=== PATIENT | female | born 1955 | race Caucasian/White ===

== ENCOUNTER 2016-10-30 18:32 | Inpatient (IN) ==
[2016-10-30] MEDS ORDERED: DUONEB (A & A) INH ONE ×2 (18:43)
[2016-10-30] MEDS ORDERED: SOLU-MEDROL ONE (19:10)
--- NOTE | 2016-10-30 19:12 | PROVIDER DOCUMENTATION ---
HPI-Respiratory General - General Chief Complaint: Shortness of Breath Stated Complaint: SOB Time Seen by Provider: 10/30/16 18:50 Source: patient Allergies/Adverse Reactions: Patient Allergies Allergy/AdvReac Type Severity Reaction Status Date / Time No Known Allergies Allergy Verified 12/17/15 12:19 Home Medications: Home Medication List Medication Instructions Recorded Confirmed Last Taken Type Clonazepam [Klonopin] 0.5 mg PO BID 09/05/12 12/22/15 12/21/15 21:00 History Trazodone E.r. [Oleptro ER] 150 mg PO QHS 09/05/12 12/22/15 12/21/15 21:00 History ATORVAstatin [Lipitor] 10 mg PO QHS #0 tablet 12/14/12 12/22/15 12/21/15 21:00 Rx Enalapril Maleate [Vasotec] 20 mg PO BID #60 12/14/12 12/22/15 12/22/15 04:30 Rx Hydralazine [Apresoline] 50 mg PO BID #0 tablet 12/14/12 12/22/15 12/22/15 04: 30 Rx Amlodipine [Norvasc] 10 mg PO DAILY 05/05/15 12/17/15 11/27/15 History Citalopram [Celexa] 40 mg PO DAILY 05/05/15 12/17/15 11/27/15 History Furosemide [Lasix] 20 mg PO PRN PRN 12/17/15 12/22/15 12/08/15 History Acetaminophen [Tylenol] 1,000 mg PO Q6H #0 tablet 12/25/15 Unknown Rx Celecoxib [Celebrex] 200 mg PO BID #60 capsule 12/25/15 Unknown Rx Docusate Sodium [Colace] 100 mg PO BID #0 capsule 12/25/15 Unknown Rx Famotidine [Pepcid] 20 mg PO QAM #0 tablet 12/25/15 Unknown Rx Oxycodone I.r. [Oxy Ir] 5 - 10 mg PO Q3H PRN PRN #60 12/25/15 Unknown Rx capsule Pregabalin [Lyrica] 75 mg PO BID #60 capsule 12/25/15 Unknown Rx Rivaroxaban [Xarelto] 10 mg PO Q24H #30 tablet 12/25/15 Unknown Rx Tramadol [Ultram] 100 mg PO Q6HR #60 tablet 12/25/15 Unknown Rx - History of Present Illness-Resp Nature of Presenting Problem: 61 YOWF WITH HX OF PNEUMONIA, PRESENTS TO ED WITH C/O PT STATES HAD A SUDDEN ONSET THIS EVENING OF SOB. PT STATES SHE HAD PNEUMONIA 1 MONTH AGO. PT DOES HAVE AUDIBLE WHEEZING. Quality of Pain: reports: aching Severity in ED: reports: moderate Onset/Duration: reports: 1-3 hours ago Timing: reports: still present Cough Quality/Degree: reports: moderate, dry cough Episode Frequency: occasional episodes Modifying Factors: improves with: nothing Associated Symptoms: reports: cough, short of breath, wheezing Similar Symptoms Previously?: No Recently seen or treated by another doctor?: No Review of Systems - Adult - REVIEW OF SYSTEMS - ADULT Constitutional: denies: chills, fever Eyes: reports: no symptoms reported Ears, Nose, Mouth & Throat: reports: no symptoms reported Cardiovascular: denies: chest pain, palpitations, syncope Respiratory: reports: cough, shortness of breath, wheezing Gastrointestinal: denies: abdominal pain, diarrhea, nausea, vomiting Genitourinary: reports: no symptoms reported Musculoskeletal: denies: back pain, neck pain Integumentary: reports: no symptoms reported Neurological: denies: dizziness/vertigo, syncope Psychiatric: reports: no symptoms reported Endocrine: reports: no symptoms reported Hematologic/Lymphatic: reports: no symptoms reported Allergic/Immunologic: reports: no symptoms reported All Other Systems: Reviewed and Negative Past History - Adult - PAST MEDICAL HISTORY-ADULT Review of Records: reports: Nursing Assessment Review, Medications Reviewed Cardiovascular: reports: HTN, other (blockage) Musculoskeletal: reports: arthritis - PRIOR SURGERIES/PROCEDURES Surgical/Procedure History: reports: hysterectomy, - IMMUNIZATION STATUS Childhood Immunizations: See Nurse Assessment Flu Vaccine: See Nurse Assessment - FAMILY HISTORY Family History: reviewed, not pertinent - SOCIAL HISTORY Living Situation: friend Physical Exam-General - CONSTITUTIONAL General Appearance: alert, moderate distress - EYES Eyes: PERRL/EOMI, pink conjunctivae - HEAD, EARS, NOSE, MOUTH & THROAT HENMT: normocephalic/atraumatic, moist mucous membranes - NECK Neck: non-tender, full range of motion, supple - RESPIRATORY Respiratory: chest non-tender, wheezing - CARDIOVASCULAR Cardiovascular: normal peripheral pulses, regular rate, rhythm - GASTROINTESTINAL (ABDOMEN) Abdominal Exam: normal bowel sounds, non tender, soft - LYMPHATIC Lymphatic: no adenopathy - MUSCULOSKELETAL Back Exam: normal inspection, no CVA tenderness, no vertebral tenderness Extremity: normal range of motion, non-tender - SKIN Integumentary: normal color, normal turgor, warm/dry - NEUROLOGIC Neurologic: grossly normal - PSYCHIATRIC Psych/Mental Status: oriented x 3 Progress - PLAN OF CARE/RESULTS Progress/Plan/Lab Results: Laboratory Tests 10/30/16 10/30/16 10/30/16 19:05 19:05 19:05 WBC RBC Hgb Hct MCV MCH MCHC RDW Std Deviation Plt Count MPV Immature Gran % (Auto) Neut % (Auto) Lymph % (Auto) [place] % (Auto) Eos % (Auto) Baso % (Auto) Immature Gran # (Auto) Neut # (Auto) Lymph # (Auto) [place] # (Auto) Eos # (Auto) Baso # (Auto) PT INR APTT (Factor Assay) Sodium 134 L Potassium 3.7 Chloride 102 Carbon Dioxide 18 L Anion Gap 14 BUN 14 Creatinine 0.8 Estimated GFR/1.73 m2 > 60 BUN/Creatinine Ratio 18 Glucose 80 Calculated Osmolality 268 Calcium 9.7 Magnesium 1.7 Total Bilirubin 0.30 AST 19 ALT 12 Alkaline Phosphatase 81 Creatine Kinase 75 Troponin T < 0.010 Qgs-Y-Luaxistikuz Pept 67 Total Protein 7.0 Albumin 4.3 Globulin 3.0 Albumin/Globulin Ratio 2.0 10/30/16 10/30/16 19:05 19:05 WBC 6.86 RBC 3.88 L Hgb 11.8 L Hct 34.9 L MCV 89.9 MCH 30.4 MCHC 33.8 RDW Std Deviation 13.0 Plt Count 290 MPV 9.3 Immature Gran % (Auto) 0.1 Neut % (Auto) 49.7 Lymph % (Auto) 38.3 [place] % (Auto) 7.4 Eos % (Auto) 3.6 Baso % (Auto) 0.9 H Immature Gran # (Auto) 0.01 Neut # (Auto) 3.40 Lymph # (Auto) 2.63 [place] # (Auto) 0.51 Eos # (Auto) 0.25 Baso # (Auto) 0.06 PT 13.4 INR 0.99 APTT (Factor Assay) 27.5 Sodium Potassium Chloride Carbon Dioxide Anion Gap BUN Creatinine Estimated GFR/1.73 m2 BUN/Creatinine Ratio Glucose Calculated Osmolality Calcium Magnesium Total Bilirubin AST ALT Alkaline Phosphatase Creatine Kinase Troponin T Yjc-W-Xpmlncupqnd Pept Total Protein Albumin Globulin Albumin/Globulin Ratio Orders Category Date Time Status Cardiac Monitoring DIRECTED Care 10/30/16 20:02 Active Oxygen Therapy- ED Nursing DIRECTED Care 10/30/16 20:02 Active Saline Loc NOW Care 10/30/16 20:02 Active CHEST-2 VIEWS [RAD] Stat Exams 10/30/16 18:42 Draft BLOOD CULTURE [BLDCUL] Stat Lab 10/30/16 18:42 Ordered CBC WITH ELECTRONIC DIFF [HEME] Stat Lab 10/30/16 19:05 Completed CK PROFILE [SP CHEM] Stat Lab 10/30/16 19:05 Completed COMPREHENSIVE METABOLIC PANEL [CHEM] Stat Lab 10/30/16 19:05 Completed MAGNESIUM [CHEM] Stat Lab 10/30/16 19:05 Completed PRO B-NATRIURETIC PEPTIDE Stat Lab 10/30/16 19:05 Completed [address]IME WITH INR PL [COAG] Stat Lab 10/30/16 19:[address] [COAG] Stat Lab 10/30/16 19:05 Completed TROPONIN T Stat Lab 10/30/16 19:05 Completed Albuterol 2.5MG/Ipratrop 0.5MG [Duoneb (A & A)] Med 10/30/16 18:43 Discontinued 3 ml INH NOW ONE Albuterol 2.5MG/Ipratrop 0.5MG [Duoneb (A & A)] Med 10/30/16 18:43 Discontinued 3 ml INH NOW ONE Methylprednisolone Sod Succ [Solu-Medrol] Med 10/30/16 19:10 Discontinued 125 mg .ROUTE .STK-MED ONE Methylprednisolone Sod Succ [Solu-Medrol] Med 10/30/16 19:15 Discontinued 125 mg IV NOW ONE Aerosol Treatments Stat Oth 10/30/16 18:43 Completed Pulse Oximetry Stat Oth 10/30/16 18:42 Active EKG [EKG] Stat Ther 10/30/16 19:00 Ordered Vital Signs - 24 hr 10/30/16 10/30/16 18:38 18:50 Temperature 98.7 F Pulse Rate 78 88 Respiratory 24 22 Rate Blood Pressure 151/83 O2 Sat by Pulse 98 98 Oximetry - EKG 1 Time of EKG reading by physician:: 18:59 EKG Read and Signed by:: Pepe Miller Rate: 79 Rhythm: SINUS RHYTHM W/ OCCASIONAL PVC'S [place]: left QRS: LBB [place] Interval: normal ST Wave: normal - XRAY 1 XRAY: Bilateral XRAY Study: Chest XRAY Interpretation: NO PNEUMONIA - CONSULTS/PCP/HOSPITALIST Notification #1 *Consult/PCP/Hospitalist*: DR FULLER Time Discussed: 20:59 Reason/Comments: DR MILLER SPOKE WITH DR FULLER. DR FULLER WILL ADMIT Consult Disposition: Admit Departure - Departure Time of Disposition Order: 20:58 DIAGNOSIS: COPD exacerbation Disposition: ADMITTED INPATIENT 09 Certified Medical Emergency: Emergent Condition: Stable Additional Instructions: ED Follow Up Instructions: You have been treated by a care provider in the Emergency Department. These instructions are being provided to you so you can have an understanding of how to care for yourself upon discharge. Upon discharge from the Emergency Department, you are responsible for making arrangements for follow-up care by a physician of your choice. Take all prescribed medications as directed. Return to the Emergency Department immediately for any new or worsening symptoms. You may call the Physician Referral phone number at [phone] to obtain a list of Physicians who are taking new patients. Attestation - Scribe Verification/Attestation Scribe:: Donato Shaw Acting as Scribe for:: Pepe Miller Scribe documention review:: This chart was documented by a scribe and accurately reflects the service the provider performed and the decisions made by the provider.
[2016-10-30] MEDS ORDERED: SOLU-MEDROL IV ONE (19:15)
--- NOTE | 2016-10-30 19:50 | Diag Imaging Result Document ---
PROCEDURE NAME: CHEST-2 VIEWS - 10/30/2016 FRONTAL AND LATERAL CHEST, 2 VIEWS: COMPARISON: Compared to 12/25/2015. The lungs are well expanded. The heart is not enlarged. The vessels are not distended. There are no infiltrates. No pleural effusions. IMPRESSION: No pneumonia.
[2016-10-30 20:22] LABS: MANUAL DIFF NEEDED? NO
[2016-10-30 20:23] LABS: BASO% 0.9 % (0.0-0.8); EOS# 0.25 X1000 (0.0-0.7); EOS% 3.6 % (0.0-10.0); HEMATOCRIT 34.9 % (37.0-47.0); HEMOGLOBIN 11.8 g/dL (12.0-16.0); IMM GRAN# 0.01 X1000 (0.0-0.04); IMM GRAN% 0.1 % (0.0-0.5); LYMPH# 2.63 X1000 (1.2-3.4); LYMPH% 38.3 % (20.5-51.1); MCH 30.4 PG (27-31); MCHC 33.8 g/dL (33-37); MCV 89.9 FL (81-99); MONO# 0.51 X1000 (0.11-0.59); MONO% 7.4 % (1.7-9.3); MPV 9.3 FL (7.4-10.4); NEUT% 49.7 % (42.2-75.2); PLT 290 X1000 (130-400); RBC 3.88 XMIL (4.2-5.4)
[2016-10-30 20:32] LABS: INR 0.99 (0.86-1.15); PROTIME 13.4 Seconds (12.1-15.5)
[2016-10-30 20:33] LABS: PTT PL 27.5 Seconds (22.6-43.9)
[2016-10-30 20:37] LABS: AGAP 14; ALBUMIN 4.3 g/dL (3.5-5.0); ALKALINE PHOSPHATASE 81 U/L (32-104); BUN 14 mg/dL (8-22); CALCIUM 9.7 mg/dL (8.8-10.2); CHLORIDE 102 mmol/L (98-107); CK PROFILE 75 U/L (24-173); COSMO 268; GOT 19 U/L (10-30); GPT 12 U/L (10-36); MAGNESIUM 1.7 mg/dL (1.5-2.7); POTASSIUM 3.7 mmol/L (3.5-5.1); SODIUM 134 mmol/L (136-145); TCO2 18 mmol/L (25-35)
[2016-10-30] MEDS ORDERED: MORPHINE IV PRN (21:01)
[2016-10-30] MEDS ORDERED: ZOFRAN IV PRN (21:01)
[2016-10-30] MEDS ORDERED: COLACE PO PRN (22:46)
[2016-10-30] MEDS: DUONEB (A & A) INH PRN (23:23)
[2016-10-30] MEDS: CELEXA PO SCH (23:27)
[2016-10-30] MEDS: FISH OIL CONCENTRATE PO SCH (23:27)
[2016-10-30] MEDS: LIPITOR PO SCH (23:27)
[2016-10-30] MEDS: DESYREL PO SCH (23:27)
[2016-10-30] MEDS: KLONOPIN PO SCH (23:27)
[2016-10-30] MEDS: LODINE PO SCH (23:28)
[2016-10-30] MEDS: APRESOLINE PO SCH (23:28)
[2016-10-30] MEDS: VASOTEC PO SCH (23:28)
[2016-10-30] MEDS: ABILIFY PO SCH (23:28)
[2016-10-30] MEDS: NORVASC PO SCH (23:28)
[2016-10-31] MEDS: MORPHINE IV PRN ×5 (00:43→23:22)
[2016-10-31] MEDS: SOLU-MEDROL IV SCH ×4 (01:10→23:22)
--- NOTE | 2016-10-31 06:07 | EKG Report ---
Test Performed on : 10/31/2016 01:43:46 AM Test Reason : CP Blood Pressure : / mmHG Vent. Rate : 116 BPM Atrial Rate : 116 BPM P-R Int : 148 ms QRS Dur : 156 ms QT Int : 420 ms P-R-T Axes : 042 -03 164 degrees QTc Int : 583 ms Sinus tachycardia. Possible Left atrial enlargement Left bundle branch block Abnormal ECG When compared with ECG of 30-OCT-2016 18:58, (Unconfirmed) premature ventricular complexes. are no longer present Unconfirmed Result
--- NOTE | 2016-10-31 06:08 | EKG Report ---
Test Performed on : 10/30/2016 6:58:08 PM Test Reason : cp Blood Pressure : / mmHG Vent. Rate : 079 BPM Atrial Rate : 079 BPM P-R Int : 142 ms QRS Dur : 154 ms QT Int : 458 ms P-R-T Axes : 033 -32 144 degrees QTc Int : 525 ms Sinus rhythm. with occasional premature ventricular complexes. Left axis deviation Left bundle branch block Abnormal ECG When compared with ECG of 22-DEC-2015 10:20, premature ventricular complexes. are now present Unconfirmed Result
[2016-10-31] MEDS: DUONEB (A & A) INH PRN (07:58)
[2016-10-31] MEDS: LODINE PO SCH ×2 (08:59→20:57)
[2016-10-31] MEDS: APRESOLINE PO SCH ×2 (09:02→20:58)
[2016-10-31] MEDS: ASPIRIN PO SCH (09:02)
[2016-10-31] MEDS: KLONOPIN PO SCH ×2 (09:02→20:58)
[2016-10-31] MEDS: VASOTEC PO SCH ×2 (09:02→20:58)
[2016-10-31] MEDS ORDERED: DUONEB (A & A) INH PRN (09:54)
[2016-10-31] MEDS: DUONEB (A & A) INH SCH ×4 (11:34→22:45)
[2016-10-31 13:01] LABS: CALCIUM 9.9 mg/dL (8.8-10.2); POTASSIUM 3.8 mmol/L (3.5-5.1)
--- NOTE | 2016-10-31 16:08 | HISTORY AND PHYSICAL ---
PRIMARY CARE PHYSICIAN: Dr. Lozada. CHIEF COMPLAINT: Shortness of breath. HISTORY OF PRESENT ILLNESS: This is a 61-year-old female with a history of COPD, pneumonia within the last month, hypertension and asthma. She presents to the emergency room complaining of shortness of breath that started about 6 or 8 hours prior to coming to the emergency room. She stated that she has felt bad over the last few days, just has not done much but through the day she started to have shortness of breath with exertion and through the day she has progressed to shortness of breath at rest with audible wheezing. Therefore she presented to the emergency room. Vital signs at that time she had respirations were 24-26 with room air saturations of 98%. Her chest x-ray was clear. She was given duo nebs as well as 125 of Solu- Medrol, supplemental oxygen, admitted for further evaluation and treatment. PAST MEDICAL HISTORY: COPD with asthma, hypertension, depression, major depressive disorder and anxiety. PAST SURGICAL HISTORY: Hip replacement. SOCIAL HISTORY: She denies alcohol, tobacco, or illicit drug use. ALLERGIES: No known drug allergies. HOME MEDICATIONS: Celexa 40 at bedtime, aspirin 81 mg daily, Abilify 5 at bedtime, Klonopin 1 mg at bedtime, Tylenol 1 g q.6 hours p.r.n., Colace 100 mg b.i.d., Klonopin 0.5 q.a.m., Ultram 100 mg q.6 hours, Oleptro ER 150 at bedtime, fish oil 1000 mg at bedtime, Lipitor 10 at bedtime, Norvasc 10 at bedtime, Apresoline 50 b.i.d., Vasotec 20 mg b.i.d. REVIEW OF SYSTEMS: A 14-point review of systems is discussed with patient with pertinent positives stated in HPI. She denied any chest pain, syncope, dizziness, any PND, orthopnea, productive cough, fever, chills, any night sweats, recent weight loss, weight gain, nausea, vomiting, diarrhea, constipation, black or bloody vomitus, black or bloody stools, hematuria, dysuria, frequency, urgency. PHYSICAL EXAMINATION: GENERAL: This is a 61-year-old female who is sitting up in the bed in mild distress as her oxygen is off. Once oxygen was applied within 2 or 3 minutes she had no increased work of breathing. HEENT: Head is normocephalic, atraumatic. Pupils equal, round, react to light. EOMs are intact. Sclerae anicteric. Mucous membranes are moist. NECK: Supple. Trachea midline. CARDIOVASCULAR: Regular rate and rhythm. S1 and S2 appreciated. PULMONARY: Breath sounds have scattered wheezes with prolonged expiration, rhonchi that partially clear to cough. Chest rises and falls symmetrically with respiration. Chest wall is nontender to palpation. GASTROINTESTINAL: Abdomen is soft, nontender, nondistended with bowel sounds in all 4 quadrants. BACK: No CVAT. No spine tenderness. MUSCULOSKELETAL: Good range of motion of joints. EXTREMITIES: No clubbing, cyanosis or edema. Pulses are palpable x4. Calves are nontender. NEUROLOGIC: She is alert and oriented x3 with cranial nerves 2-12 grossly intact. SKIN: Warm and dry with no rashes or lesions noted. LABS: WBC is 6.8 with hemoglobin 11.8, hematocrit 34.9 and platelets of 290,000. INR is 0.99. Sodium is 134, potassium 3.7, BUN 14, creatinine 0.8 with a glucose of 80. Troponin is less than 0.010. Chest x-ray revealed no pneumonia. The heart is not enlarged. Vessels are not distended. There are no infiltrates, no pleural effusions. ASSESSMENT AND PLAN: 1. Chronic obstructive pulmonary disease, acute on chronic exacerbation. 2. Hypertension. 3. Major depressive disorder. 4. Anxiety. 5. Deep vein thrombosis prophylaxis. 6. Gastrointestinal prophylaxis. She will be admitted to the hospital. Placed on telemetry. Will give supplemental oxygen, DuoNeb q.4 with q.2 hours p.r.n. with steroids to taper. We will identify and continue her home medications as appropriate. We will trend her electrolytes. We will start incentive spirometer. The patient out of bed in the chair. For DVT prophylaxis we will use Lovenox and for GI prophylaxis Protonix. Further treatments pending hospital course. Dictated by BAILEY Arambula for Garrett Baugh MD
[2016-10-31] MEDS: CELEXA PO SCH (20:57)
[2016-10-31] MEDS: FISH OIL CONCENTRATE PO SCH (20:57)
[2016-10-31] MEDS: LIPITOR PO SCH (20:57)
[2016-10-31] MEDS: ABILIFY PO SCH (20:58)
[2016-10-31] MEDS: DESYREL PO SCH (20:58)
[2016-10-31] MEDS: NORVASC PO SCH (20:58)
[2016-10-31] MEDS ORDERED: PATIENT'S OWN MED PO SCH (21:00)
[2016-11-01] MEDS: DUONEB (A & A) INH SCH ×6 (03:01→23:19)
[2016-11-01] MEDS: MORPHINE IV PRN ×4 (06:20→22:09)
[2016-11-01] MEDS: SOLU-MEDROL IV SCH ×3 (06:20→22:01)
[2016-11-01 06:25] LABS: HEMATOCRIT 34.1 % (37.0-47.0); MCH 30.3 PG (27-31); MCHC 32.3 g/dL (33-37); MCV 93.9 FL (81-99); MPV 9.6 FL (7.4-10.4); RBC 3.63 XMIL (4.2-5.4)
[2016-11-01 06:41] LABS: AGAP 13; BUN 16 mg/dL (8-22); CALCIUM 9.6 mg/dL (8.8-10.2); CHLORIDE 107 mmol/L (98-107); COSMO 287; POTASSIUM 4.4 mmol/L (3.5-5.1); SODIUM 140 mmol/L (136-145); TCO2 20 mmol/L (25-35)
[2016-11-01] MEDS: LOVENOX SUBQ SCH (08:21)
[2016-11-01] MEDS: APRESOLINE PO SCH ×2 (08:21→21:56)
[2016-11-01] MEDS: VASOTEC PO SCH ×2 (08:21→21:56)
[2016-11-01] MEDS: LODINE PO SCH ×2 (08:21→21:56)
[2016-11-01] MEDS: ASPIRIN PO SCH (08:21)
[2016-11-01] MEDS: KLONOPIN PO SCH ×2 (08:21→21:56)
[2016-11-01] MEDS: LEVAQUIN 750 MG/D5W 150 ML IV SCH (08:22)
[2016-11-01] MEDS ORDERED: NS 500 ML ONE (08:26)
--- NOTE | 2016-11-01 10:51 | Diag Imaging Result Document ---
PROCEDURE NAME: CHEST-PORTABLE - 11/01/2016 PORTABLE CHEST: Compared with 10/30/2016. FINDINGS: Heart size is normal. There is a small granuloma and calcified hilar lymph nodes from old granulomatous disease on the left. The lungs otherwise appear clear. There is no pleural effusion or pneumothorax identified. Inspiration is slightly shallow. IMPRESSION: Slightly shallow inspiration. No other evidence of acute disease.
[2016-11-01] MEDS: CELEXA PO SCH (21:56)
[2016-11-01] MEDS: FISH OIL CONCENTRATE PO SCH (21:56)
[2016-11-01] MEDS: NORVASC PO SCH (21:56)
[2016-11-01] MEDS: ABILIFY PO SCH (21:56)
[2016-11-01] MEDS: LIPITOR PO SCH (21:56)
[2016-11-01] MEDS: DESYREL PO SCH (21:56)
[2016-11-02] MEDS: DUONEB (A & A) INH SCH ×4 (03:08→21:07)
[2016-11-02 06:15] LABS: BASO% 0.1 % (0.0-0.8); HEMOGLOBIN 10.8 g/dL (12.0-16.0); IMM GRAN# 0.09 X1000 (0.0-0.04); IMM GRAN% 0.5 % (0.0-0.5); LYMPH# 0.49 X1000 (1.2-3.4); LYMPH% 2.8 % (20.5-51.1); MANUAL DIFF NEEDED? YES; MCH 30.6 PG (27-31); MCHC 32.7 g/dL (33-37); MCV 93.5 FL (81-99); MONO# 0.37 X1000 (0.11-0.59); MONO% 2.1 % (1.7-9.3); MPV 9.5 FL (7.4-10.4); NEUT% 94.5 % (42.2-75.2); PLT 288 X1000 (130-400); RBC 3.53 XMIL (4.2-5.4)
[2016-11-02 06:28] LABS: AGAP 11; ALBUMIN 3.7 g/dL (3.5-5.0); ALKALINE PHOSPHATASE 86 U/L (32-104); BUN 26 mg/dL (8-22); CALCIUM 9.1 mg/dL (8.8-10.2); CHLORIDE 106 mmol/L (98-107); COSMO 290; GOT 17 U/L (10-30); GPT 15 U/L (10-36); POTASSIUM 4.7 mmol/L (3.5-5.1); SODIUM 140 mmol/L (136-145); TCO2 23 mmol/L (25-35); TOTAL PROTEIN 6.1 g/dL (6.3-8.3)
[2016-11-02] MEDS: SOLU-MEDROL IV SCH (06:30)
[2016-11-02] MEDS: KLONOPIN PO SCH ×2 (08:05→22:24)
[2016-11-02] MEDS: LOVENOX SUBQ SCH (08:05)
[2016-11-02] MEDS: VASOTEC PO SCH ×2 (08:06→22:25)
[2016-11-02] MEDS: ASPIRIN PO SCH (08:06)
[2016-11-02] MEDS: LODINE PO SCH ×2 (08:06→22:25)
[2016-11-02] MEDS: APRESOLINE PO SCH ×2 (08:06→22:25)
[2016-11-02] MEDS: LEVAQUIN 750 MG/D5W 150 ML IV SCH (08:08)
[2016-11-02 08:19] LABS: LYMPHS 4 % (21-51); MONO 2 % (1-9)
[2016-11-02] MEDS: MORPHINE IV PRN (09:41)
[2016-11-02] MEDS: TYLENOL PO PRN (18:07)
[2016-11-02] MEDS: FISH OIL CONCENTRATE PO SCH (22:24)
[2016-11-02] MEDS: LIPITOR PO SCH (22:24)
[2016-11-02] MEDS: NORVASC PO SCH (22:24)
[2016-11-02] MEDS: ABILIFY PO SCH (22:24)
[2016-11-02] MEDS: CELEXA PO SCH (22:25)
[2016-11-02] MEDS: DESYREL PO SCH (22:25)
[2016-11-03] MEDS: DUONEB (A & A) INH SCH ×4 (03:50→20:12)
[2016-11-03 05:57] LABS: MANUAL DIFF NEEDED? NO
[2016-11-03] MEDS: KLONOPIN PO SCH ×2 (09:40→20:46)
[2016-11-03] MEDS: LOVENOX SUBQ SCH (09:40)
[2016-11-03] MEDS: LODINE PO SCH ×2 (09:40→20:48)
[2016-11-03] MEDS: LEVAQUIN 750 MG/D5W 150 ML IV SCH (09:40)
[2016-11-03] MEDS: ASPIRIN PO SCH (09:40)
[2016-11-03] MEDS: APRESOLINE PO SCH ×2 (09:40→20:46)
[2016-11-03] MEDS: VASOTEC PO SCH ×2 (09:40→20:48)
[2016-11-03 09:59] LABS: BASO% 0.2 % (0.0-0.8); HEMATOCRIT 34.4 % (37.0-47.0); HEMOGLOBIN 11.4 g/dL (12.0-16.0); IMM GRAN# 0.25 X1000 (0.0-0.04); IMM GRAN% 1.7 % (0.0-0.5); LYMPH# 1.96 X1000 (1.2-3.4); LYMPH% 13.3 % (20.5-51.1); MCH 30.7 PG (27-31); MCHC 33.1 g/dL (33-37); MCV 92.7 FL (81-99); MONO# 1.42 X1000 (0.11-0.59); MONO% 9.6 % (1.7-9.3); MPV 9.2 FL (7.4-10.4); NEUT% 75.2 % (42.2-75.2); PLT 304 X1000 (130-400); RBC 3.71 XMIL (4.2-5.4)
[2016-11-03] MEDS: TYLENOL PO PRN (14:01)
[2016-11-03] MEDS ORDERED: NS 500 ML IV SCH (19:30)
[2016-11-03] MEDS: DESYREL PO SCH (20:46)
[2016-11-03] MEDS: LIPITOR PO SCH (20:47)
[2016-11-03] MEDS: FISH OIL CONCENTRATE PO SCH (20:47)
[2016-11-03] MEDS: ABILIFY PO SCH (20:47)
[2016-11-03] MEDS: CELEXA PO SCH (20:48)
[2016-11-03] MEDS: NORVASC PO SCH (20:48)
[2016-11-04] MEDS: DUONEB (A & A) INH SCH ×2 (04:32→08:07)
[2016-11-04] MEDS: LEVAQUIN 750 MG/D5W 150 ML IV SCH (08:59)
[2016-11-04] MEDS: ASPIRIN PO SCH (08:59)
[2016-11-04] MEDS: VASOTEC PO SCH (08:59)
[2016-11-04] MEDS: LODINE PO SCH (08:59)
[2016-11-04] MEDS: KLONOPIN PO SCH (08:59)
[2016-11-04] MEDS: LOVENOX SUBQ SCH (08:59)
[2016-11-04] MEDS: APRESOLINE PO SCH (08:59)
[2016-11-04] MEDS: TYLENOL PO PRN (10:53)
[2016-11-04 12:32] VITALS: BP 137/75
[2016-11-04] MEDS ORDERED: ZOFRAN ODT PO ONE (13:08)
--- NOTE | 2016-11-04 18:15 | DISCHARGE SUMMARY ---
ADMISSION DATE: 10/30/2016 DISCHARGE DATE: 11/04/2016 DISCHARGE DIAGNOSES: 1. Acute chronic obstructive pulmonary disease exacerbation. 2. Hypertension. 3. Leukocytosis secondary to intravenous Solu-Medrol. HOSPITAL COURSE: Ms. Schwartz is a 61-year-old female who was recently diagnosed with pneumonia and has history of COPD. She presented to the emergency department with shortness of breath where she was diagnosed as having acute chronic obstructive pulmonary disease exacerbation and was therefore admitted to the hospital for further care. She received IV steroids along with inhaled bronchodilators. After admission her white blood cell count was found to be elevated because of IV steroids. She did have improvement in her white blood cell count after IV steroids were discontinued. Her wheezing has completely resolved and she feels much better. Her blood pressure has remained stable with her usual blood pressure medicines. Since her condition has improved we are going to let her go home today. DISCHARGE MEDICATIONS: 1. Albuterol and Atrovent nebulization treatments every 6 hours as needed for wheezing. 2. Abilify 5 mg orally once daily at bedtime. 3. Hydralazine 50 mg orally twice daily. 4. Aspirin 81 mg orally once daily. 5. Citalopram 40 mg orally once daily. 6. Enalapril 20 mg orally twice daily. 7. Clonazepam 0.5 mg in the morning and 1 mg at bedtime. 8. Atorvastatin 10 mg orally once daily at bedtime. 9. Etodolac 400 mg orally twice daily. 10. Amlodipine 10 mg orally once daily. 11. Trazodone 150 mg orally once daily at bedtime. FOLLOWUP: She will follow up with me at the office in approximately 1 week. DISPOSITION: Home.
== END 2016-11-04 14:44 | disposition home or self-care (01) | DRG 192 ==
LOC: P.ED 18:32 → P.MEDSURG 21:17
PROVIDERS: ATTEND Internal Medicine
DX: J44.1 Chronic obstructive pulmonary disease with (acute) exacerbation (principal); I10 Essential (primary) hypertension; J45.909 Unspecified asthma, uncomplicated; D72.829 Elevated white blood cell count, unspecified; F41.9 Anxiety disorder, unspecified; F32.9 Major depressive disorder, single episode, unspecified; Z79.899 Other long term (current) drug therapy; Z79.82 Long term (current) use of aspirin; Z96.649 Presence of unspecified artificial hip joint; T38.0X5A Adverse effect of glucocorticoids and synthetic analogues, initial encounter
CPT/HCPCS: 36415; 71010; 71020; 80048; 80053; 82550; 83735; 83880; 84484; 85025; 85027; 85610; 85730; 87040; 93005; 94640; 94667; 94668; 94761; 96374; J1650; J2270; J2930; J7040; 97116-GP

== ENCOUNTER 2017-03-14 03:52 | Inpatient (IN) ==
[2017-03-09 10:40] LABS: MANUAL DIFF NEEDED? NO; URINE MICRO REVIEW NEEDED? NO; URINE SOURCE CLEAN CATCH
--- NOTE | 2017-03-09 10:41 | EKG Report ---
Test Performed on : 03/09/2017 10:04:18 AM Test Reason : PAT Blood Pressure : / mmHG Vent. Rate : 086 BPM Atrial Rate : 086 BPM P-R Int : 150 ms QRS Dur : 150 ms QT Int : 432 ms P-R-T Axes : 026 -42 133 degrees QTc Int : 516 ms Normal sinus rhythm. Left axis deviation Left bundle branch block Abnormal ECG When compared with ECG of 31-OCT-2016 01:43, Nonspecific T wave abnormality has replaced inverted T waves in Inferior leads Confirmed by Zafar Madsen MD ([id number]) on 03/09/2017 12:49:52 PM
[2017-03-09 10:55] LABS: BILIRUBIN URINE NEGATIVE (NEGATIVE); BLOOD URINE NEGATIVE (NEGATIVE); COLOR YELLOW; GLUCOSE URINE NEGATIVE (NEGATIVE); LEUKOCYTES URINE NEGATIVE (NEGATIVE); NITRITE URINE NEGATIVE (NEGATIVE); PH URINE 5.5; PROTEIN URINE NEGATIVE (NEGATIVE); TURBIDITY URINE CLEAR (CLEAR); UROBILINOGEN URINE NORMAL (NORMAL)
[2017-03-09 10:57] LABS: UR EPITHELIAL CELLS <10 /HPF (<10); URINE BACTERIA NEGATIVE /HPF; URINE RBC <10 /HPF (<10); URINE WBC <10 /HPF (<10)
[2017-03-09 11:08] LABS: BASO% 0.9 % (0.0-0.8); EOS# 0.32 X1000 (0.0-0.7); EOS% 4.2 % (0.0-10.0); HEMATOCRIT 40.1 % (37.0-47.0); HEMOGLOBIN 13.2 g/dL (12.0-16.0); IMM GRAN# 0.02 X1000 (0.0-0.04); IMM GRAN% 0.3 % (0.0-0.5); LYMPH% 19.7 % (20.5-51.1); MCH 30.1 PG (27-31); MCHC 32.9 g/dL (33-37); MCV 91.3 FL (81-99); MONO# 0.49 X1000 (0.11-0.59); MONO% 6.4 % (1.7-9.3); NEUT% 68.5 % (42.2-75.2); PLT 253 X1000 (130-400); RBC 4.39 XMIL (4.2-5.4)
[2017-03-09 11:13] LABS: INR 0.95; PROTIME 9.9 Seconds (9.2-11.7); PTT 26.6 Seconds (22.0-36.0)
[2017-03-09 11:25] LABS: CALCIUM 9.6 mg/dL (8.8-10.2); POTASSIUM 4.3 mmol/L (3.5-5.1)
[2017-03-14] MEDS ORDERED: COLACE ONE (06:19)
[2017-03-14] MEDS ORDERED: PEPCID ONE (06:19)
[2017-03-14] MEDS ORDERED: LYRICA ONE (06:19)
[2017-03-14] MEDS ORDERED: REGLAN ONE (06:19)
[2017-03-14] MEDS ORDERED: LR 1,000 ML ONE (06:20)
[2017-03-14] MEDS ORDERED: CELEBREX ONE (06:20)
[2017-03-14] MEDS ORDERED: KEFZOL 2 GM/D5W 2 GM/50 ML IVPB ONE (06:20)
[2017-03-14] MEDS ORDERED: DURAMORPH ONE (06:46)
[2017-03-14] MEDS ORDERED: CYKLOKAPRON 1,000 MG/NS 1,000 MG/100 ML IVPB ONE (06:47)
[2017-03-14] MEDS ORDERED: SODIUM CHLORIDE 0.9% ONE (06:47)
[2017-03-14] MEDS ORDERED: SENSORCAINE 0.25%/EPI 1:200,000 ONE (06:47)
[2017-03-14] MEDS ORDERED: TORADOL ONE (06:47)
[2017-03-14] MEDS ORDERED: EXPAREL 1.3% ONE (06:48)
[2017-03-14] MEDS ORDERED: NEOSPORIN G.U. IRRIGANT ONE (06:48)
[2017-03-14] MEDS ORDERED: DIPRIVAN 1% ONE (07:00)
[2017-03-14] MEDS ORDERED: XYLOCAINE-MPF 2% ONE (07:01)
[2017-03-14] MEDS ORDERED: QUELICIN (DOSE) ONE (07:26)
[2017-03-14] MEDS ORDERED: NORCURON ONE (07:46)
[2017-03-14] MEDS ORDERED: NEO-SYNEPHRINE ONE ×2 (08:03→08:42)
[2017-03-14] MEDS ORDERED: FENTANYL ONE (08:29)
[2017-03-14 08:38] LABS: URINE MICRO REVIEW NEEDED? NO; URINE SOURCE CATH
[2017-03-14 08:43] LABS: BILIRUBIN URINE NEGATIVE (NEGATIVE); BLOOD URINE NEGATIVE (NEGATIVE); COLOR YELLOW; GLUCOSE URINE NEGATIVE (NEGATIVE); LEUKOCYTES URINE NEGATIVE (NEGATIVE); NITRITE URINE NEGATIVE (NEGATIVE); PROTEIN URINE NEGATIVE (NEGATIVE); SP GRAVITY URINE 1.016; TURBIDITY URINE CLEAR (CLEAR); UROBILINOGEN URINE NORMAL (NORMAL)
[2017-03-14 08:46] LABS: UR EPITHELIAL CELLS <10 /HPF (<10); URINE BACTERIA NEGATIVE /HPF; URINE RBC <10 /HPF (<10); URINE WBC <10 /HPF (<10)
[2017-03-14] MEDS ORDERED: OFIRMEV 1000 MG/ISOTONIC SOLN 1,000 MG/100 ML BOTTLE ONE (08:48)
[2017-03-14] MEDS ORDERED: ZOFRAN ONE (08:49)
[2017-03-14] MEDS ORDERED: DECADRON ONE (08:49)
[2017-03-14] MEDS ORDERED: ROBINUL ONE ×2 (09:48→09:50)
[2017-03-14] MEDS ORDERED: NEOSTIGMINE ONE (09:50)
[2017-03-14] MEDS ORDERED: MORPHINE ONE (10:30)
--- NOTE | 2017-03-14 10:35 | Diag Imaging Result Doc PS360 ---
EXAM: CHEST-PORTABLE HISTORY: MD order TECHNIQUE: AP portable at 1020 COMMENT: The inspiration is suboptimal. Considering the degree of inspiration there is been no significant change since 11/01/2016. IMPRESSION: Stable chest. Electronically signed by Jovani Hamilton 03/14/2017 10:33 AM
[2017-03-14] MEDS: DILAUDID ONE ×2 (10:40→10:45)
[2017-03-14] MEDS ORDERED: DILAUDID ONE (10:53)
[2017-03-14] MEDS ORDERED: NS 1,000 ML ONE (11:11)
[2017-03-14] MEDS ORDERED: MILK OF MAGNESIA PO PRN (12:00)
[2017-03-14] MEDS ORDERED: AMBIEN PO PRN (12:00)
[2017-03-14] MEDS ORDERED: ZOFRAN IV PRN (12:00)
[2017-03-14] MEDS ORDERED: CYKLOKAPRON 1,000 MG in NS 100 ML IV ONE (13:55)
[2017-03-14] MEDS: TYLENOL PO SCH ×3 (15:22→23:44)
[2017-03-14] MEDS: ULTRAM PO SCH ×3 (15:22→23:44)
[2017-03-14] MEDS: DUONEB (A & A) INH SCH ×2 (15:49→19:05)
[2017-03-14] MEDS: KEFZOL 2 GM/D5W 2 GM/50 ML IVPB IV SCH ×2 (15:58→22:58)
--- NOTE | 2017-03-14 16:21 | OPERATIVE NOTE ---
PROCEDURE DATE: 03/14/2017 PREOPERATIVE DIAGNOSIS: Left hip degenerative joint disease. POSTOPERATIVE DIAGNOSIS: Left hip degenerative joint disease. PROCEDURE: Left anterior total hip arthroplasty using a [facility] size 14 stem with a + 0, 36 mm ceramic head, a 54 mm hemispherical shell acetabular shell with a 36 mm inside diameter liner and two 6.5 cancellous screws for the acetabular shell of 35 and 15 mm, and then 2 cables for a fractured femoral shaft. ANESTHESIA: General SURGEON: Darian Mg MD TRAINING OFFICER: Yecenia Bland PA-C, who was present throughout the case and assisted with the implantation of the implants, preparation for implantation, placement of the cables as well as a wound closure. SECOND TRAINING OFFICER: Rodney Louise RN COMPLICATION: Fracture to the femoral shaft that was treated with 2 braided cables. BLOOD LOSS: Minimal. DESCRIPTION OF PROCEDURE: The patient was brought to the operative suite and placed in supine position. After satisfactory administration of general anesthesia, the patient was placed on the OSI table in the usual position for left hip. The left hip was then prepped and draped in the usual sterile fashion. A longitudinal made beginning 2 cm distal and 2 cm lateral to the anterior superior iliac spine, extending distally and slightly laterally 8 cm. It was dissected sharply through the skin and subcutaneous tissue down to the tensor fascia. The tensor fascia was incised and dissected bluntly down to the deep tensor fascia. The deep tensor fascia was incised. The circumflex vessels were electrocauterized, exposing the anterior neck. A T- capsulotomy was performed, exposing the femoral neck. A femoral neck cut was made with the oscillating saw. Femoral head was removed with a power corkscrew. The labrum was resected. The acetabulum was serially reamed to accept a 54 cup. There was found to be a cyst in the superior dome, this was debrided, and then bone grafted and then the cup was driven into place in the proper amount of inclination and anteversion to reinforce fixation due to her soft bone, 2 cancellous screws were placed 6.5 mm 35 mm in length superiorly and a 6.5 mm 15 mm in length posterior superiorly. Excellent purchase was obtained. Excellent placement inclination and anteversion of the cup was noted on the x-ray. The cup liner was then locked into place. Attention was directed to the femur. The femur was externally rotated, extended , adducted and elevated out of the wound with the hook on the OSI bed. The lateral neck was rongeured. The canal was serially broached to a size 14. She was found have a fracture of the posterior wall of the femur including the lesser trochanter. This was cabled back into place with 2 cables and excellent reduction was obtained. It was trialed with a +0 neck length and found to be excellent stability of the hip and excellent leg length, excellent fit and fill of the stem. The trial was removed. The 14 mm stem was driven into place and then the cables were tightened. The ceramic head was locked on the Wetzel taper and the hip was reduced. It was again found to be in excellent position and was staple. The wound was copiously irrigated. The hip was copiously infiltrated with Exparel including the posterior capsule, anterior capsule, anterior musculature, and subcutaneous tissue. A drain was placed deep to the tensor fascia and buried around the stem neck. The anterior capsule was repaired with 0 the locked suture and then the gluteus fascia was closed with 0 V-Loc suture. Skin edge approximated with 2-0 Vicryl, 4-0 Monocryl, and Prineo. A sterile dressing was applied. The patient tolerated the procedure well without complication. At the end of the procedure, all counts correct. The patient was transferred to the recovery room in stable condition. cc: Darian Mg MD [facility]
[2017-03-14] MEDS: SYMBICORT 160/4.5 MICROGM INHALER INH SCH (19:05)
[2017-03-14] MEDS: NS 1,000 ML IV SCH (22:59)
[2017-03-14] MEDS: APRESOLINE PO SCH ×2 (23:01→23:44)
[2017-03-14] MEDS: CELEBREX PO SCH (23:02)
[2017-03-14] MEDS: VASOTEC PO SCH ×2 (23:03→23:43)
[2017-03-14] MEDS: PERIDEX MT SCH (23:04)
[2017-03-14] MEDS: CELEXA PO SCH (23:05)
[2017-03-14] MEDS: MORPHINE IV PRN (23:09)
[2017-03-14] MEDS: NORVASC PO SCH (23:43)
[2017-03-14] MEDS: KLONOPIN PO SCH (23:43)
[2017-03-15] MEDS: LYRICA PO SCH ×3 (00:25→21:58)
[2017-03-15] MEDS: COLACE PO SCH ×3 (00:25→21:57)
[2017-03-15] MEDS: KLONOPIN PO SCH ×3 (00:26→21:57)
[2017-03-15] MEDS: DESYREL PO SCH ×2 (00:26→21:57)
[2017-03-15] MEDS: FISH OIL CONCENTRATE PO SCH ×2 (00:26→21:57)
[2017-03-15] MEDS: LODINE PO SCH ×3 (00:27→21:58)
[2017-03-15] MEDS: LIPITOR PO SCH ×2 (00:27→21:57)
[2017-03-15] MEDS: NORVASC PO SCH ×2 (00:28→21:59)
[2017-03-15] MEDS: DUONEB (A & A) INH SCH ×4 (03:15→21:55)
[2017-03-15] MEDS: OXY IR PO PRN ×3 (03:54→21:58)
[2017-03-15 05:35] LABS: HEMATOCRIT 25.2 % (37.0-47.0)
[2017-03-15 05:46] LABS: POTASSIUM 5.2 mmol/L (3.5-5.1)
[2017-03-15] MEDS: ULTRAM PO SCH ×3 (06:29→18:56)
[2017-03-15] MEDS: XARELTO PO SCH (06:29)
[2017-03-15] MEDS: TYLENOL PO SCH ×3 (06:29→18:56)
[2017-03-15] MEDS: NS 1,000 ML IV SCH (06:45)
[2017-03-15] MEDS ORDERED: DECADRON IV ONE (09:00)
[2017-03-15] MEDS: PERIDEX MT SCH ×2 (09:23→21:57)
[2017-03-15] MEDS: APRESOLINE PO SCH (09:24)
[2017-03-15] MEDS: LEVAQUIN PO SCH (09:24)
[2017-03-15] MEDS: PEPCID PO SCH (09:24)
[2017-03-15] MEDS: CELEBREX PO SCH ×2 (09:24→21:58)
[2017-03-15] MEDS: VASOTEC PO SCH (09:25)
[2017-03-15] MEDS: BREO ELLIPTA 200/25 MCG INH INH SCH (10:57)
[2017-03-15] MEDS: SYMBICORT 160/4.5 MICROGM INHALER INH SCH ×2 (10:58→19:35)
--- NOTE | 2017-03-15 11:32 | PROGRESS NOTE ---
DATE: 03/15/2017 SUBJECTIVE: Ms. Schwartz is a 61-year-old female who is postoperative day 1 from a left total hip arthroplasty. She states she is doing well and she has no new complaints. OBJECTIVE: General: She is a well-developed, well-nourished female. She is alert, oriented, and cooperative with the examination. She is in no acute distress. Vital Signs: Stable. She is afebrile. Extremities and Integument: She had 215 mL of drainage from her Hemovac. Her wound is clean, dry, and intact, without signs of infection. Her calf is soft and her left leg is neurovascularly intact. LABORATORY: Her hemoglobin is 8.0 and her hematocrit is 25.2. ASSESSMENT: Postoperative day 1 from a left total hip arthroplasty. PLAN: We will have her start working with physical therapy today and she can be transferred to rehab later this week. Dictated by CHRISSIE Nina for Darian Mg MD cc: CHRISSIE Nina MD
[2017-03-15] MEDS: MORPHINE IV PRN (13:45)
[2017-03-15] MEDS: CELEXA PO SCH (21:57)
[2017-03-16] MEDS: ULTRAM PO SCH ×4 (00:34→17:24)
[2017-03-16] MEDS: TYLENOL PO SCH ×4 (00:35→17:25)
[2017-03-16] MEDS: DUONEB (A & A) INH SCH ×4 (04:00→22:53)
[2017-03-16 05:41] LABS: HEMOGLOBIN 6.8 g/dL (12.0-16.0)
[2017-03-16] MEDS: VASOTEC PO SCH ×3 (05:50→22:41)
[2017-03-16] MEDS: APRESOLINE PO SCH ×3 (05:50→22:41)
[2017-03-16] MEDS: XARELTO PO SCH (06:24)
[2017-03-16] MEDS: SYMBICORT 160/4.5 MICROGM INHALER INH SCH ×2 (07:36→19:17)
[2017-03-16] MEDS: BREO ELLIPTA 200/25 MCG INH INH SCH (07:40)
[2017-03-16] MEDS: PERIDEX MT SCH ×2 (09:46→21:22)
[2017-03-16] MEDS: LYRICA PO SCH ×2 (09:46→22:41)
[2017-03-16] MEDS: CELEBREX PO SCH ×2 (09:46→21:23)
[2017-03-16] MEDS: COLACE PO SCH ×2 (09:47→21:23)
[2017-03-16] MEDS: PEPCID PO SCH (09:47)
[2017-03-16] MEDS: KLONOPIN PO SCH ×2 (09:47→22:40)
[2017-03-16] MEDS: LODINE PO SCH ×2 (09:47→21:22)
[2017-03-16] MEDS: LEVAQUIN PO SCH (09:47)
[2017-03-16] MEDS: OXY IR PO PRN (11:19)
--- NOTE | 2017-03-16 12:24 | Diag Imaging Result Doc PS360 ---
EXAM: CHEST-PORTABLE HISTORY: rehab placement TECHNIQUE: Portable upright COMPARISON: 03/14/2017 FINDINGS: The lungs are well expanded. The heart is not enlarged. The vessels are not distended. No pneumonia. No pleural effusions identified. IMPRESSION: Negative chest. Electronically signed by Ferny Lucas 03/16/2017 12:21 PM
--- NOTE | 2017-03-16 14:08 | PROGRESS NOTE ---
DATE: 03/16/2017 SUBJECTIVE: Soraida Schwartz is a 61-year-old female who is postoperative day 2 from her left anterior total hip arthroplasty. She has complaints of continued pain in her left hip. Otherwise, no new complaints. OBJECTIVE: General: She is a well-developed, well-nourished female. She is alert, oriented, and cooperative with exam. Vital Signs: Otherwise stable to exam. She is afebrile. LABORATORY DATA: Her hematocrit is 21%, her hemoglobin is 6.8. ASSESSMENT: Left anterior total hip arthroplasty with acute blood loss anemia. PLAN: I am going to transfuse her today. She will likely go to rehab either tomorrow or Tuesday depending on how she progresses. cc: Darian Mg MD
[2017-03-16] MEDS: DESYREL PO SCH (21:22)
[2017-03-16] MEDS: FISH OIL CONCENTRATE PO SCH (21:22)
[2017-03-16] MEDS: LIPITOR PO SCH (21:23)
[2017-03-16] MEDS: CELEXA PO SCH (21:24)
[2017-03-16] MEDS: NORVASC PO SCH (22:41)
[2017-03-17] MEDS: TYLENOL PO SCH ×5 (02:59→23:07)
[2017-03-17] MEDS: ULTRAM PO SCH ×5 (02:59→23:09)
[2017-03-17] MEDS: DUONEB (A & A) INH SCH ×4 (03:21→22:51)
[2017-03-17] MEDS: XARELTO PO SCH (05:08)
[2017-03-17 05:46] LABS: HEMATOCRIT 28.9 % (37.0-47.0); HEMOGLOBIN 9.6 g/dL (12.0-16.0)
[2017-03-17] MEDS: MORPHINE IV PRN ×2 (06:01→14:34)
[2017-03-17] MEDS: SYMBICORT 160/4.5 MICROGM INHALER INH SCH ×2 (07:49→20:28)
[2017-03-17] MEDS: BREO ELLIPTA 200/25 MCG INH INH SCH (07:49)
[2017-03-17] MEDS: PERIDEX MT SCH ×2 (08:12→20:20)
[2017-03-17] MEDS: LODINE PO SCH ×2 (08:13→20:20)
[2017-03-17] MEDS: LYRICA PO SCH ×2 (08:14→20:20)
[2017-03-17] MEDS: CELEBREX PO SCH ×2 (08:14→20:19)
[2017-03-17] MEDS: COLACE PO SCH ×2 (08:15→20:19)
[2017-03-17] MEDS: PEPCID PO SCH (08:15)
[2017-03-17] MEDS: VASOTEC PO SCH ×3 (08:15→20:21)
[2017-03-17] MEDS: APRESOLINE PO SCH ×3 (08:15→22:43)
[2017-03-17] MEDS: LEVAQUIN PO SCH (08:15)
[2017-03-17] MEDS: KLONOPIN PO SCH ×2 (08:15→20:20)
--- NOTE | 2017-03-17 09:33 | PROGRESS NOTE ---
DATE: 03/17/2017 SUBJECTIVE: Ms Schwartz is a 61-year-old female, who is postoperative day 3 from a left anterior total hip arthroplasty. She complains of continued pain in her left hip, otherwise, she is doing well with no new complaints. OBJECTIVE: She is a well-developed, well-nourished female. She is alert, oriented, and cooperative with the examination. She is in acute distress. Her vital signs are stable. She is afebrile. Her hemoglobin is 9.6, hematocrit is 28.9. Her wound is clean, dry, and intact without sign of infection. Her calf is soft, and she is able to move her hip with pain. Her left leg is neurovascularly intact. ASSESSMENT: Left anterior total hip arthroplasty, postoperative day 3. PLAN: We are going to continue working with her with physical therapy and continue to monitor her, and she will likely go to rehab tomorrow depending on how she progresses. Dictated by CHRISSIE Nina for Darian Mg MD cc: CHRISSIE Nina MD
[2017-03-17] MEDS: OXY IR PO PRN ×2 (11:43→12:28)
[2017-03-17] MEDS: FISH OIL CONCENTRATE PO SCH (20:19)
[2017-03-17] MEDS: DESYREL PO SCH (20:19)
[2017-03-17] MEDS: CELEXA PO SCH (20:20)
[2017-03-17] MEDS: LIPITOR PO SCH (20:20)
[2017-03-17] MEDS: NORVASC PO SCH (22:44)
[2017-03-18] MEDS: DUONEB (A & A) INH SCH ×2 (03:40→09:27)
[2017-03-18] MEDS: TYLENOL PO SCH ×3 (04:56→12:15)
[2017-03-18] MEDS: ULTRAM PO SCH ×2 (04:59→12:16)
[2017-03-18] MEDS: XARELTO PO SCH (04:59)
[2017-03-18] MEDS: LODINE PO SCH (08:21)
[2017-03-18] MEDS: PEPCID PO SCH (08:22)
[2017-03-18] MEDS: KLONOPIN PO SCH (08:22)
[2017-03-18] MEDS: VASOTEC PO SCH (08:22)
[2017-03-18] MEDS: LEVAQUIN PO SCH (08:22)
[2017-03-18] MEDS: COLACE PO SCH (08:22)
[2017-03-18] MEDS: APRESOLINE PO SCH (08:22)
[2017-03-18] MEDS: LYRICA PO SCH (08:22)
[2017-03-18] MEDS: PERIDEX MT SCH (08:22)
[2017-03-18] MEDS: CELEBREX PO SCH (08:22)
[2017-03-18] MEDS: SYMBICORT 160/4.5 MICROGM INHALER INH SCH (09:27)
[2017-03-18] MEDS: BREO ELLIPTA 200/25 MCG INH INH SCH (09:27)
--- NOTE | 2017-03-18 10:40 | DISCHARGE SUMMARY ---
ADMISSION DATE: 03/14/2017 DISCHARGE DATE: 03/18/2017 DISCHARGE DIAGNOSIS: Left anterior total hip arthroplasty with a fracture to the femoral shaft. DISCHARGE MEDICATION: See discharge medication list. DISPOSITION: Patient discharged to rehab with instructions for touchdown weightbearing on the left. Instructed to return to see Dr. Mg next week for x-rays. Instructed to return for any signs of infection or deep venous thrombosis. HOSPITAL COURSE: On the day of admission, patient underwent a left total hip arthroplasty. Her surgery was complicated by a fracture to her femur. This was treated with cables and the implant. Her postoperative course has been complicated by pain and difficulty maintaining touchdown weightbearing status. Her vital signs are stable. She is afebrile. She is tolerating a regular diet. Her wound is clean, dry, and intact without sign of infection. She has no sign of deep venous thrombosis. She is being discharged to rehab in stable condition with instructions to follow up as described above. cc: Darian Mg MD
[2017-03-18 11:26] VITALS: BP 120/63
== END 2017-03-18 14:03 ==
LOC: SURHOLD 03:52 → 4N 08:22
PROVIDERS: ADMIT Orthopaedic Surgery; ATTEND Orthopaedic Surgery

== ENCOUNTER 2019-01-27 20:31 | Inpatient (IN) ==
[2019-01-27] MEDS ORDERED: MORPHINE IV ONE (20:50)
[2019-01-27] MEDS ORDERED: ZOFRAN IV ONE (20:50)
[2019-01-27 21:20] LABS: BLOOD TYPE ARTERIAL; HCO3-(ACT) 26.4 mmoll (20.0-26.0); O2(CT) 18.5 mL/dL (15.0-23.0); O2HB 95.5 % (95.0-99.0); PCO2(98.6) 36 mmHg (35-45); PO2(98.6) 115 mmHg (60-100); SAMPLE BLOOD; SAO2 97.3 % (95.0-100.0); THB 13.7 g/dL (11.5-17.4); pH(98.6) 7.46 (7.35-7.45)
[2019-01-27 21:23] LABS: ALLEN TEST YES; MODALITY CANNULA
[2019-01-27 21:41] LABS: AGAP 17; BUN 8 mg/dL (8-22); CALCIUM 9.2 mg/dL (8.8-10.2); CHLORIDE 102 mmol/L (98-107); COSMO 281; CREATININE 0.7 mg/dL (0.5-0.9); ESTIMATED GFR > 60; GLUCOSE 128 mg/dL (70-104); POTASSIUM 4.4 mmol/L (3.5-5.1); SODIUM 141 mmol/L (136-145); TCO2 22 mmol/L (25-35)
[2019-01-27 22:06] LABS: BASO# 0.08 X1000 (0.0-0.2); BASO% 1.3 % (0.0-0.8); EOS# 0.43 X1000 (0.0-0.7); EOS% 7.2 % (0.0-10.0); HEMATOCRIT 37.8 % (37.0-47.0); HEMOGLOBIN 12.9 g/dL (12.0-16.0); IMM GRAN# 0.02 X1000 (0.0-0.04); IMM GRAN% 0.3 % (0.0-0.5); LYMPH# 1.73 X1000 (1.2-3.4); MCH 30.2 PG (27-31); MCHC 34.1 g/dL (33-37); MCV 88.5 FL (81-99); MONO# 0.49 X1000 (0.11-0.59); MONO% 8.2 % (1.7-9.3); MPV 9.7 FL (7.4-10.4); NEUT# 3.22 X1000 (1.4-6.5); PLT 306 X1000 (130-400); RBC 4.27 XMIL (4.2-5.4); RDW 13.3 % (11.5-14.5); WBC 5.97 X1000 (4.8-10.8)
--- NOTE | 2019-01-27 22:07 | Diag Imaging Result Doc PS360 ---
EXAM: CHEST-PORTABLE INDICATION: cp TECHNIQUE: One view COMPARISON: 08/31/2017 FINDINGS: The lungs are grossly clear. There is no discrete pleural fluid collection or pneumothorax. The cardiomediastinal silhouette and central vasculature are grossly unremarkable. IMPRESSION: No evidence of acute pathology by plain radiograph. Electronically signed by Saul Puri 01/27/2019 10:05 PM
--- NOTE | 2019-01-27 22:09 | Diag Imaging Result Doc PS360 ---
EXAM: SHOULDER-LEFT INDICATION: pain TECHNIQUE: 3 views COMPARISON: None. FINDINGS: There are minimal degenerative changes at the AC joint and glenohumeral joint with tiny marginal osteophytes. There is no discrete fracture, dislocation, or significant intrinsic osseous lesion, otherwise. The surrounding soft tissues are essentially unremarkable. IMPRESSION: Minimal degenerative changes. No evidence of acute osseous abnormality. Electronically signed by Saul Puri 01/27/2019 10:06 PM
[2019-01-27 22:17] LABS: INR 0.88; PROTIME 12.4 Seconds (11.0-16.0)
[2019-01-27 22:18] LABS: PTT 25.5 Seconds (22.3-41.8)
[2019-01-27 22:21] LABS: BILIRUBIN URINE NEGATIVE (NEGATIVE); BLOOD URINE NEGATIVE (NEGATIVE); CLARITY CLEAR (CLEAR); COLOR YELLOW; GLUCOSE URINE NEGATIVE (NEGATIVE); KETONE URINE NEGATIVE (NEGATIVE); LEUKOCYTES URINE TRACE (NEGATIVE); NITRITE URINE NEGATIVE (NEGATIVE); PH URINE 6.5; PROTEIN URINE 1+(30 mg/dL) mg/dL (NEGATIVE); UROBILINOGEN URINE NORMAL
[2019-01-27 22:22] LABS: URINE BACTERIA 1+ /HFP; URINE CAST NONE SEEN /LPF; URINE CRYSTAL NONE SEEN /HPF; URINE EPITHELIAL CELLS <10 /HPF (<10); URINE SOURCE CATH; URINE WBC <10 /HPF (<10); URINE YEAST NONE SEEN /HPF
[2019-01-27 22:26] LABS: UR AMPHETAMINES QUAL NONE DETECTED (NONE DETECT); UR BARBITUATES QUAL NONE DETECTED (NONE DETECT); UR BENZODIAZEPIN QUAL NONE DETECTED (NONE DETECT); UR CANNABINOIDS QUAL NONE DETECTED (NONE DETECT); UR COCAINE QUAL NONE DETECTED (NONE DETECT); UR METHADONE QUAL NONE DETECTED (NONE DETECT); UR METHAMPHETAMINE QUAL NONE DETECTED (NONE DETECT); UR OPIATES QUAL PRESUMPTIVE POSITIVE (NONE DETECT); UR OXYCODONE QUAL NONE DETECTED (NONE DETECT); UR PCP QUAL NONE DETECTED (NONE DETECT); UR PROPOXYPHENE QUAL NONE DETECTED (NONE DETECT); UR TCA QUAL NONE DETECTED (NONE DETECT)
[2019-01-27] MEDS ORDERED: DILAUDID IV ONE (23:59)
[2019-01-28] MEDS ORDERED: ZOFRAN IV PRN (01:44)
[2019-01-28] MEDS ORDERED: DILAUDID IM PRN (01:44)
[2019-01-28] MEDS ORDERED: DUONEB (A & A) INH PRN (08:33)
[2019-01-28] MEDS ORDERED: TYLENOL PO PRN (08:33)
--- NOTE | 2019-01-28 08:44 | EKG Report ---
Test Performed on : 01/28/2019 08:28:10 AM Test Reason : tachycardia; CP Blood Pressure : / mmHG Vent. Rate : 124 BPM Atrial Rate : 124 BPM P-R Int : 122 ms QRS Dur : 136 ms QT Int : 350 ms P-R-T Axes : 021 -41 121 degrees QTc Int : 502 ms Sinus tachycardia. Left axis deviation Left bundle branch block Abnormal ECG When compared with ECG of 01-SEP-2017 00:08, Nonspecific T wave abnormality no longer evident in Inferior leads Confirmed by Obinna Anne MD ([id number]) on 02/04/2019 10:18:48 AM
[2019-01-28] MEDS ORDERED: SOLU-MEDROL IV ONE (08:50)
[2019-01-28] MEDS ORDERED: KLONOPIN PO SCH (09:00)
[2019-01-28] MEDS ORDERED: COZAAR PO SCH (09:00)
--- NOTE | 2019-01-28 09:07 | EKG Report ---
Test Performed on : 01/27/2019 8:30:41 PM Test Reason : tachycardia; CP Blood Pressure : / mmHG Vent. Rate : 097 BPM Atrial Rate : 097 BPM P-R Int : 118 ms QRS Dur : 140 ms QT Int : 394 ms P-R-T Axes : 000 -16 163 degrees QTc Int : 500 ms Normal sinus rhythm. Left bundle branch block Abnormal ECG When compared with ECG of 18-APR-2012 14:19, Previous ECG has undetermined rhythm, needs review Unconfirmed Result
[2019-01-28] MEDS: ROCEPHIN 1 GM in NS 50 ML IV SCH (10:12)
[2019-01-28] MEDS: ULTRAM PO SCH ×3 (10:18→21:05)
[2019-01-28] MEDS: APRESOLINE PO SCH ×2 (10:18→21:04)
[2019-01-28] MEDS: VASOTEC PO SCH ×3 (10:18→21:05)
[2019-01-28] MEDS: ZITHROMAX 500 MG/NS 500 MG/250 ML IVPB IV SCH (10:22)
[2019-01-28] MEDS ORDERED: DILAUDID IV PRN (10:55)
--- NOTE | 2019-01-28 10:59 | HISTORY AND PHYSICAL ---
PRIMARY CARE PHYSICIAN: Pratibha Lozada MD CHIEF COMPLAINT: Chest pain. HISTORY OF PRESENTING ILLNESS: This is a 63-year-old female who presents to [facility] ER via EMS with complaints of chest pain and severe left arm pain, shortness of breath, wheezing. States she was given an aspirin and nitroglycerin by EMS without any relief. Her workup in the emergency room showed an O2 saturation on room air on arrival of 87%. Laboratory data showed 3 cardiac enzymes were negative. Urine drug screen was presumptive positive for opiates. This morning, she is visibly short of breath. On 3.5 L of nasal cannula, was saturating 89%. Was also noted to be tachycardic this morning at 121. Her chest x-ray showed no evidence of acute pathology. They did do a left shoulder x-ray that showed no evidence of an acute osseous abnormality so she was admitted for further evaluation and treatment. PAST MEDICAL HISTORY: CHF, hypertension, COPD, GERD, arthritis with chronic pain. PAST SURGICAL HISTORY: , hysterectomy, bilateral hip replacement, and a left femur repair. FAMILY HISTORY: Reviewed and noncontributory. SOCIAL HISTORY: She currently lives alone. She is a former smoker, but has been quit for 2 years and denied any illicit drug use. ALLERGIES: Albuterol. HOME MEDICATIONS: She takes Tylenol 1000 mg p.o. q.6 h. p.r.n. DuoNeb q.4-6 h. p.r.n., Norvasc 10 mg p.o. at bedtime, Lipitor 10 mg p.o. at bedtime, Celexa 40 mg p.o. at bedtime, Klonopin 0.5 mg p.o. q.a.m., Klonopin 1 mg p.o. at bedtime, Vasotec 20 mg p.o. b.i.d., etodolac 400 mg p.o. b.i.d., Breo Ellipta 1 puff inhalation daily, hydralazine 50 mg p.o. b.i.d., Cozaar 100 mg p.o. daily, fish oil 1000 mg p.o. at bedtime, Ultram 100 mg p.o. q.6 h., trazodone 150 mg p.o. at bedtime. DIAGNOSTIC STUDIES: Laboratory data showed a white blood cell count of 5.97, hemoglobin 12.9, hematocrit 37.8, platelets 306,000. PT 12.4, INR 0.88 with a D-dimer of 0.39. ABG with a pH of 7.46, pCO2 of 36, PO2 of 115, bicarbonate 26.4, and this was on 4 L via nasal cannula. Sodium 141, potassium 4.4, chloride 102, CO2 of 22, BUN of 8, creatinine 0.7, glucose 128, magnesium of 1.9. Troponins x3 sets have been negative. Urinalysis was negative except for 1+ bacteria. Urine drug screen was presumptive positive for opiates. Chest x-ray showed no acute pathology by plain radiograph. Left shoulder x-ray showed minimal degenerative changes. No evidence of an acute osseous abnormality. EKG on arrival showed sinus tachycardia at 124. REVIEW OF SYSTEMS: She denied any fever, chills, blurred vision, dizziness. She was positive for chest pain, shortness of breath, wheezing, nonproductive cough. Denied any abdominal pain, constipation, diarrhea, or burning or hurting with urination. PHYSICAL EXAMINATION: VITAL SIGNS: On arrival had a temperature of 98.4 degrees, pulse 95, respirations 20, blood pressure 166/84, saturating 97% on room air. GENERAL: This is a 63-year-old female who is lying in the bed, is visibly short of breath, and noted to be wheezing. HEMNT: Normocephalic, atraumatic. Normal ENT inspection. Oropharynx and nares clear. EYES: Pupils are equal, round, and reactive to light and accommodation. Extraocular movements are intact. NECK: Normal inspection. Normal range of motion. LUNGS: With wheezing throughout entire posterior lung olivas. Equal lung expansion chest wall movement is noted. O2 via nasal cannula currently in use. She is also noted to have a nonproductive cough. HEART: Regular rate and rhythm. No murmurs, rubs, or gallops. ABDOMEN: Soft, nontender, nondistended. Bowel sounds are present x4 quadrants. MUSCULOSKELETAL: She has 5/5 strength x4 extremities. NEUROLOGICAL: The cranial nerves 2 through 12 appear grossly intact. ASSESSMENT: 1. Chest pain. 2. Acute chronic obstructive pulmonary disease exacerbation. 3. Tachycardia. 4. Congestive heart failure, history of. PLAN: She was admitted to the medical unit. Has been ruled out for any heart issues with 3 negative troponins. We placed her on telemetry. O2 per protocol. Healthy heart diet. We are going to treat her with Atrovent 0.5 mg nebulizer q.4 h. Give her Solu-Medrol 125 mg IV x1 and then 80 mg p.o. q.8 h. and wean as she improves. Rocephin 1 gram IV q.24 h., azithromycin 500 IV q.24 h. Continue home medications as previously identified. Zofran 4 mg IV q.4 h. p.r.n. Urine culture pending. We will recheck a CBC and BMP in the a.m. Further orders after seen by attending. Dictated by BAILEY Thurston for Harrison Rivas MD Addendum: Patient seen and examined by myself. Agree with BAILEY note. It reflects my assessment and plan. Patient is being admitted to hospital for chest pain and copd exacerbation. Workup in progress. Will monitor patient closely. check troponins, Continue with Calib. cc: BAILEY Thurston MD Adnan A. Seljuki, MD [facility]
[2019-01-28] MEDS ORDERED: DUONEB (A & A) INH SCH ×2 (11:30)
[2019-01-28] MEDS ORDERED: ATROVENT NEB INH SCH (11:30)
[2019-01-28] MEDS: LODINE PO SCH ×2 (12:46→21:04)
[2019-01-28] MEDS: PRILOSEC PO SCH (12:47)
--- NOTE | 2019-01-28 14:57 | Diag Imaging Result Doc PS360 ---
EXAM: CT THORAX W/O CONTRAST INDICATION: pna, copd exacerbation TECHNIQUE: This exam was performed using automated exposure control, adjustment of mA or kV according to patient size, and/or use of iterative reconstruction technique. COMPARISON: 12/11/2012 FINDINGS: There is a stable calcified granuloma in the left lower lobe posteriorly. The lungs are grossly clear, otherwise. There is no airspace consolidation appreciated. There is no pleural fluid collection and no pneumothorax. There is no cardiomegaly. There are a couple of calcified left hilar lymph nodes indicating prior granulomatous disease. There is no significant mediastinal or hilar lymphadenopathy, otherwise. There is multilevel thoracic spondylosis and prominent degenerative changes of both shoulders. Limited views of the upper abdomen are essentially unremarkable. IMPRESSION: Stable chronic changes as described. No definite acute chest pathology. Electronically signed by Saul Puri 01/28/2019 2:54 PM
[2019-01-28] MEDS: BREO ELLIPTA 200/25 MCG INH INH SCH (15:29)
[2019-01-28] MEDS: ATROVENT NEB INH SCH ×3 (15:40→23:44)
[2019-01-28] MEDS: SOLU-MEDROL IV SCH (19:37)
[2019-01-28] MEDS: LIPITOR PO SCH (21:04)
[2019-01-28] MEDS: NORVASC PO SCH (21:04)
[2019-01-28] MEDS: FISH OIL CONCENTRATE PO SCH (21:04)
[2019-01-28] MEDS: KLONOPIN PO SCH (21:04)
[2019-01-28] MEDS: DESYREL PO SCH (21:04)
[2019-01-28] MEDS: CELEXA PO SCH (21:05)
[2019-01-29] MEDS: SOLU-MEDROL IV SCH ×3 (00:10→16:06)
[2019-01-29] MEDS: ULTRAM PO SCH ×4 (02:14→22:44)
[2019-01-29] MEDS: ATROVENT NEB INH SCH ×6 (03:33→23:33)
[2019-01-29 06:05] LABS: BLOOD TYPE ARTERIAL; HCO3-(ACT) 24.1 mmoll (20.0-26.0); METHB 0.8 % (0.0-1.5); O2(CT) 15.8 mL/dL (15.0-23.0); O2HB 94.4 % (95.0-99.0); PCO2(98.6) 45 mmHg (35-45); PO2(98.6) 86 mmHg (60-100); SAMPLE BLOOD; SAO2 95.9 % (95.0-100.0); THB 11.8 g/dL (11.5-17.4); pH(98.6) 7.35 (7.35-7.45)
[2019-01-29 06:09] LABS: ALLEN TEST YES; MODALITY CANNULA
[2019-01-29] MEDS: PRILOSEC PO SCH (06:10)
[2019-01-29] MEDS ORDERED: DILAUDID IV PRN (06:53)
[2019-01-29 07:30] LABS: BASO# 0.01 X1000 (0.0-0.2); BASO% 0.1 % (0.0-0.8); HEMOGLOBIN 10.9 g/dL (12.0-16.0); IMM GRAN# 0.05 X1000 (0.0-0.04); IMM GRAN% 0.4 % (0.0-0.5); LYMPH# 0.61 X1000 (1.2-3.4); LYMPH% 5.3 % (20.5-51.1); MCH 29.8 PG (27-31); MCV 90.2 FL (81-99); MONO% 1.7 % (1.7-9.3); MPV 9.8 FL (7.4-10.4); NEUT# 10.72 X1000 (1.4-6.5); NEUT% 92.5 % (42.2-75.2); PLT 264 X1000 (130-400); RBC 3.66 XMIL (4.2-5.4); RDW 12.9 % (11.5-14.5); WBC 11.59 X1000 (4.8-10.8)
[2019-01-29] MEDS: BREO ELLIPTA 200/25 MCG INH INH SCH (07:45)
[2019-01-29 07:48] LABS: AGAP 14; BUN 20 mg/dL (8-22); CALCIUM 9.1 mg/dL (8.8-10.2); CHLORIDE 100 mmol/L (98-107); COSMO 283; CREATININE 0.9 mg/dL (0.5-0.9); ESTIMATED GFR > 60; GLUCOSE 253 mg/dL (70-104); POTASSIUM 4.8 mmol/L (3.5-5.1); SODIUM 136 mmol/L (136-145); TCO2 22 mmol/L (25-35)
[2019-01-29 09:18] LABS: ANISOCYTOSIS 1+; LYMPHS 6 % (21-51); MONO 3 % (1-9); SEGS 91 % (42-75)
[2019-01-29] MEDS: APRESOLINE PO SCH ×2 (09:32→22:46)
[2019-01-29] MEDS: LODINE PO SCH ×2 (09:33→22:46)
[2019-01-29] MEDS: ASPIRIN EC PO SCH (09:33)
[2019-01-29] MEDS: ROCEPHIN 1 GM in NS 50 ML IV SCH (09:34)
[2019-01-29] MEDS: VASOTEC PO SCH ×2 (09:36→22:51)
[2019-01-29] MEDS: ZITHROMAX 500 MG/NS 500 MG/250 ML IVPB IV SCH (11:44)
--- NOTE | 2019-01-29 20:21 | PROGRESS NOTE ---
DATE: 01/29/2019 SUBJECTIVE: Patient notes that she is feeling better. She is having less shortness of breath. Denies any current chest pain. I think that the shortness of breath was the cause of her chest pain. Overall, notes that she is feeling better. PHYSICAL EXAMINATION: Vital Signs: Temperature 97.1, pulse 73, respiratory rate 18, BP 114/48. General: Patient is in no current respiratory distress, although she did just undergo a breathing treatment. She currently is on oxygen. HEENT: Normocephalic. Neck: Supple. Cardiovascular: Regular rate. Chest: Minimal wheezing. Improved air movement. Uncertain of her baseline. Abdomen: Soft, obese, nondistended. Extremities: Moves all extremities. Neurologic: No changes. ASSESSMENT: 1. Chest pain, resolved. 2. Chronic obstructive pulmonary disease with exacerbation. 3. Congestive heart failure, systolic, by history. Appears at her baseline. 4. Tachycardia. PLAN: We will stop her Dilaudid. We will decrease her Solu-Medrol to 60 q.8. Continue Rocephin and azithromycin. Continue breathing treatments with oxygen and hopefully can continue to wean. Expect to be in the hospital 2 to 3 more days. cc: Garrett Baugh MD
[2019-01-29] MEDS: KLONOPIN PO SCH (22:45)
[2019-01-29] MEDS: DESYREL PO SCH (22:45)
[2019-01-29] MEDS: CELEXA PO SCH (22:46)
[2019-01-29] MEDS: LIPITOR PO SCH (22:46)
[2019-01-29] MEDS: FISH OIL CONCENTRATE PO SCH (22:46)
[2019-01-29] MEDS: NORVASC PO SCH (22:47)
[2019-01-30] MEDS: SOLU-MEDROL IV SCH ×3 (00:01→16:48)
[2019-01-30] MEDS: ATROVENT NEB INH SCH ×6 (03:35→23:18)
[2019-01-30] MEDS: ULTRAM PO SCH ×4 (03:59→22:46)
[2019-01-30] MEDS: PROTONIX PO SCH (06:02)
[2019-01-30] MEDS: BREO ELLIPTA 200/25 MCG INH INH SCH (07:42)
[2019-01-30] MEDS: APRESOLINE PO SCH ×2 (10:17→22:46)
[2019-01-30] MEDS: ASPIRIN EC PO SCH (10:17)
[2019-01-30] MEDS: VASOTEC PO SCH ×2 (10:20→22:47)
[2019-01-30] MEDS: LODINE PO SCH ×2 (10:20→22:46)
[2019-01-30] MEDS: ROCEPHIN 1 GM in NS 50 ML IV SCH (10:21)
[2019-01-30] MEDS: ZITHROMAX PO SCH (11:16)
[2019-01-30] MEDS: DESYREL PO SCH (22:45)
[2019-01-30] MEDS: LIPITOR PO SCH (22:45)
[2019-01-30] MEDS: CELEXA PO SCH (22:47)
[2019-01-30] MEDS: NORVASC PO SCH (22:48)
[2019-01-30] MEDS: KLONOPIN PO SCH (22:48)
[2019-01-30] MEDS: FISH OIL CONCENTRATE PO SCH (22:48)
--- NOTE | 2019-01-30 23:19 | PROGRESS NOTE ---
DATE: 01/29/2019 SUBJECTIVE: The patient notes overall she is feeling a lot better. Still having some cough, shortness of breath. Denies any chest pains, fatigue. Denies any palpitations. PHYSICAL EXAMINATION: Vital Signs: Temperature 97.3, pulse 72, respiratory 17, BP 109/49. General: The patient is awake, alert. She is in minimal distress. HEENT: Normocephalic. Neck: Supple. Cardiovascular: Regular rate. Chest: Minimal wheezing. Mildly labored. Abdomen: Soft, nondistended, obese. Extremities: Moves all extremities. Neurologic: No changes. ASSESSMENT: 1. Chronic obstructive pulmonary disease with exacerbation. 2. Tachycardia. 3. Acute hypoxic respiratory failure. 4. History of systolic congestive heart failure in stable condition. PLAN: We will continue the patient in the hospital, decrease her Solu-Medrol to 40 IV q.8. We will stop her Dilaudid and use p.o. pain medications and continue antibiotics. Hopefully home with the next day or two. cc: Garrett Baugh MD
[2019-01-31] MEDS: SOLU-MEDROL IV SCH ×3 (00:31→23:56)
[2019-01-31] MEDS: ATROVENT NEB INH SCH ×6 (03:18→23:38)
[2019-01-31] MEDS: ULTRAM PO SCH ×4 (03:45→20:47)
[2019-01-31] MEDS: PROTONIX PO SCH (06:16)
[2019-01-31 07:28] LABS: HEMOGLOBIN 11.5 g/dL (12.0-16.0); MCHC 32.9 g/dL (33-37); MCV 91.4 FL (81-99); MPV 10.3 FL (7.4-10.4); RBC 3.83 XMIL (4.2-5.4); RDW 13.2 % (11.5-14.5); WBC 14.17 X1000 (4.8-10.8)
[2019-01-31 08:24] LABS: AGAP 16; BUN 21 mg/dL (8-22); CHLORIDE 104 mmol/L (98-107); COSMO 291; CREATININE 0.7 mg/dL (0.5-0.9); ESTIMATED GFR > 60; GLUCOSE 228 mg/dL (70-104); POTASSIUM 4.6 mmol/L (3.5-5.1); SODIUM 141 mmol/L (136-145); TCO2 22 mmol/L (25-35)
[2019-01-31] MEDS: VASOTEC PO SCH ×2 (08:47→20:55)
[2019-01-31] MEDS: BREO ELLIPTA 200/25 MCG INH INH SCH (09:19)
[2019-01-31] MEDS: LODINE PO SCH ×2 (09:19→20:54)
[2019-01-31] MEDS: APRESOLINE PO SCH ×2 (09:19→20:54)
[2019-01-31] MEDS: ASPIRIN EC PO SCH (09:20)
[2019-01-31] MEDS: OMNICEF PO SCH ×2 (09:20→20:54)
[2019-01-31] MEDS: ZITHROMAX PO SCH (09:20)
[2019-01-31] MEDS: NORVASC PO SCH (20:54)
[2019-01-31] MEDS: LIPITOR PO SCH (20:54)
[2019-01-31] MEDS: FISH OIL CONCENTRATE PO SCH (20:54)
[2019-01-31] MEDS: KLONOPIN PO SCH (20:54)
[2019-01-31] MEDS: DESYREL PO SCH (20:55)
[2019-01-31] MEDS: CELEXA PO SCH (20:55)
--- NOTE | 2019-01-31 23:36 | PROGRESS NOTE ---
DATE: 01/31/2019 SUBJECTIVE: Patient notes that she is feeling better. Still having cough, congestion, although improving. Denies any fevers or chills. OBJECTIVE: Vital signs: Temperature 98.2 degrees, pulse 79, respiratory 18, BP 122/77. General: Patient is awake, alert, currently she is in no respiratory distress. She is lying in bed. HEENT: Normocephalic. Neck: Supple. Cardiovascular: Regular rate. Chest: Clear, nonlabored. No wheezing. Abdomen: Soft, nondistended, nontender. Extremities: Moves all extremities. ASSESSMENT: 1. Chronic obstructive pulmonary disease with exacerbation. 2. Tachycardia. 3. Known history of congestive heart failure. PLAN: We will continue patient in the hospital. Continue breathing treatments, antibiotics. Will decrease Solu-Medrol to 40 mg q.12 hours. Hopefully, she will continue to improve and can be discharged home over the next day or two. cc: Garrett Baugh MD
[2019-02-01] MEDS: ULTRAM PO SCH ×3 (03:31→14:25)
[2019-02-01] MEDS: ATROVENT NEB INH SCH ×3 (03:50→11:35)
[2019-02-01 05:41] VITALS: BP 133/63
[2019-02-01] MEDS: PROTONIX PO SCH (06:08)
[2019-02-01] MEDS: ZITHROMAX PO SCH (08:28)
[2019-02-01] MEDS: VASOTEC PO SCH ×2 (08:28→08:31)
[2019-02-01] MEDS: OMNICEF PO SCH (08:28)
[2019-02-01] MEDS: ASPIRIN EC PO SCH (08:28)
[2019-02-01] MEDS: LODINE PO SCH (08:28)
[2019-02-01] MEDS: APRESOLINE PO SCH (08:28)
[2019-02-01] MEDS: SOLU-MEDROL IV SCH (11:53)
--- NOTE | 2019-02-02 03:30 | DISCHARGE SUMMARY ---
ADMISSION DATE: 01/28/2019 DISCHARGE DATE: 02/01/2019 CONSULTATIONS: None. PERTINENT PROCEDURES: Chest CT, stable chronic changes, no acute chest pathology. Chest x-ray, no evidence of acute pathology. Shoulder x-ray, mild degenerative changes, no evidence of acute osseous abnormality. DISCHARGE DIAGNOSES: 1. Chronic obstructive pulmonary disease exacerbation, resolved. 2. Tachycardia, improved. 3. Mild congestive heart failure. 4. Believed to be obstructive sleep apnea. Patient will be set up as an outpatient with Dr. Shaw. She did not qualify for home O2. HOSPITAL COURSE: Briefly, Ms. Schwartz is a 63-year-old female who presented to [facility] ER with complaints of chest pain and severe left arm pain, shortness of breath and wheezing. She was given aspirin and nitroglycerin by EMS without any relief. Her workup in the ED showed an O2 saturation of 87% on room air. Three sets of cardiac enzymes were negative. Urine drug screen was positive for opiates. She was on 3.5 L nasal cannula, saturating 89%. She was tachycardic. Her chest x-ray showed no evidence of acute pathology as well as her left shoulder x-ray showed no acute osseous abnormality and she was admitted for COPD exacerbation. Ruled out for RI, placed on antibiotics and steroids. She has improved over the last few days. We did see if she would qualify for home O2. She does not qualify. We will set her up for a sleep study for suspected sleep apnea and have her follow up with her primary care doctor, Dr. Lozada, in 1 to 2 weeks. Her appointment for Dr. Enrrique Shaw is on 02/14/2019 at 10 a.m. VITAL SIGNS: At time of her discharge, temperature was 97.7 degrees, heart rate 67, respirations 20, blood pressure 133/63, O2 is 94% on room air with ambulation. DISCHARGE DIET: Healthy heart. HOME MEDICATIONS: 1. Celexa 40 mg p.o. at bedtime. 2. Norvasc 10 mg p.o. at bedtime. 3. Ultram 100 mg p.o. at bedtime. 4. Ultram 50 mg p.o. q.8 hours. 5. Aspirin 81 mg p.o. daily. 6. Etodolac 400 mg p.o. b.i.d. 7. Klonopin 0.5 mg p.o. q.a.m. 8. Klonopin 1 mg p.o. at bedtime. 9. Fish oil 1000 mg p.o. at bedtime. 10. Lipitor 10 mg p.o. at bedtime. 11. Apresoline 50 mg p.o. b.i.d. 12. Breo Ellipta 1 puff inhaled RT daily. 13. Cozaar 100 mg p.o. daily. 14. Medrol Dosepak 4 mg p.o. as directed. 15. Omnicef 300 mg p.o. b.i.d. 16. Vasotec 20 mg p.o. b.i.d. 17. Zithromax 500 mg p.o. daily. FOLLOWUP: Ms. Schwartz is being discharged back home with self care. She will follow up with Dr. Enrrique Shaw on 02/17/2019 at 10 a.m. as well as her primary care provider, Dr. Lozada. Again, she did not qualify for home O2. She is to take all medications as prescribed. She can return to the ED or call 911 for any worsening of symptoms. Dictated by BAILEY Fairbanks for Garrett Baugh MD cc: MD Pratibha Holloway MD James W. Roy, MD
--- NOTE | 2019-02-02 03:48 | DISCHARGE SUMMARY ---
ADMISSION DATE: 01/30/2019 DISCHARGE DATE: 02/01/2019 ADDENDUM: Patient seen and examined by myself. Full note dictated and discussed with nurse practitioner. On discharge, patient is awake, alert. She is in no distress. States she is feeling better. She was admitted to the hospital, treated for a COPD exacerbation, placed on Solu-Medrol and weaned down while she is in the hospital. She was given breathing treatments and oxygen. On discharge, she is moving air much better, much less wheezing. She is able to ambulate and therefore will be discharged home. Please see full note. cc: Garrett Baugh MD
--- NOTE | 2019-02-02 07:12 | PROVIDER DOCUMENTATION ---
This chart was entered by Tiny Turcios Scribe, acting as scribe for Frantz Gutierrez MD. HPI-General Adult - General Stated Complaint: Chest pain Time Seen by Provider: 01/27/19 20:31 Source: patient Allergies/Adverse Reactions: Patient Allergies Allergy/AdvReac Type Severity Reaction Status Date / Time albuterol AdvReac Unknown Verified 07/29/17 12:08 Home Medications: Home Medication List Medication Instructions Recorded Confirmed Last Taken Type Clonazepam [Klonopin] 0.5 mg PO QAM 09/05/12 01/28/19 1 Day Ago History ~07/22/17 ATORVAstatin [Lipitor] 10 mg PO QHS #0 tablet 12/14/12 01/28/19 1 Day Ago Rx ~07/22/17 Hydralazine [Apresoline] 50 mg PO BID #0 tablet 12/14/12 01/28/19 1 Day Ago Rx ~07/22/17 Amlodipine [Norvasc] 10 mg PO QHS 05/05/15 01/28/19 1 Day Ago History ~07/22/17 Citalopram [Celexa] 40 mg PO QHS 05/05/15 01/28/19 1 Day Ago History ~07/22/17 Clonazepam [Klonopin] 1 mg PO HS 10/30/16 01/28/19 1 Day Ago History ~07/22/17 Etodolac 400 mg PO BID 10/30/16 01/28/19 1 Day Ago History ~07/22/17 Losartan Potassium [Cozaar] 100 mg PO DAILY #30 tab 09/01/17 01/28/19 Unknown Rx Aspirin [Adult Aspirin] 81 mg PO DAILY 01/28/19 01/28/19 Unknown History Tramadol [Ultram] 50 mg PO Q8HR 01/28/19 01/28/19 Unknown History Tramadol [Ultram] 100 mg PO QHS 01/28/19 01/28/19 Unknown History Azithromycin [Zithromax] 500 mg PO DAILY #3 tab 02/01/19 Unknown Rx CefDINIR [Omnicef] 300 mg PO BID #6 cap 02/01/19 Unknown Rx ENALApril [Vasotec] 20 mg PO BID tab 02/01/19 Unknown Rx Fluticasone/Vilant 200/25 INH 1 puff INH RTDAILY inhaler 02/01/19 Unknown Rx [Breo Ellipta 200/25 Mcg INH] Methylprednisolone [Medrol Dosepak] 4 mg PO DIRECTED #1 pkg 02/01/19 Unknown Rx [place]-3 Fatty Acids [Fish Oil 1,000 mg PO QHS cap 02/01/19 Unknown Rx Concentrate] - History of Present Illness -Gen Adult Nature of Presenting Problems: pt is a 63 yr old female presenting via EMS with severe left arm pain, no known injury. pt denies any radiation, denies chest pain. pt admits shortness of breath, hx of COPD, CHF. pt given ASA, nitro by EMS without relief Location of Pain/Injury: reports: upper extremity (left arm), other (DENIES FALL OR INJURY) Pain Radiation: reports: no radiation Quality of Pain: reports: aching, sharp Severity: reports: severe Onset/Duration: reports: just prior to arrival Timing: reports: still present Context/Activities at Onset: reports: light activity Modifying Factors: improves with: other medication (ASA, Nitro without relief) Associated Symptoms: reports: arm pain (left). denies: chest pain Similar Symptoms Previously?: No Recently seen or treated by another doctor?: No Review of Systems - Adult - REVIEW OF SYSTEMS - ADULT Constitutional: reports: no symptoms reported Eyes: reports: no symptoms reported Ears, Nose, Mouth & Throat: reports: no symptoms reported Cardiovascular: denies: chest pain, edema, palpitations, syncope Respiratory: reports: shortness of breath. denies: cough, wheezing Gastrointestinal: denies: abdominal pain, nausea, vomiting Genitourinary: denies: dysuria, frequency, flank pain Musculoskeletal: reports: bone pain. denies: back pain, joint pain, neck pain Integumentary: reports: no symptoms reported Neurological: denies: dizziness/vertigo, headache/migraines Psychiatric: reports: no symptoms reported Endocrine: reports: no symptoms reported Hematologic/Lymphatic: reports: no symptoms reported Allergic/Immunologic: reports: no symptoms reported All Other Systems: Reviewed and Negative Past History - Adult - PAST MEDICAL HISTORY-ADULT Review of Records: reports: Old Records Reviewed, Nursing Assessment Review, Medications Reviewed, Social history reviewed & non-contributory. Major Childhood Illnesses: reports: denies history Cardiovascular: reports: CHF, HTN, other (blockage) Respiratory: reports: COPD Gastrointestinal: reports: GERD Obstetrical/Gynecological: reports: denies history Genitourinary: reports: denies history Musculoskeletal: reports: arthritis, chronic pain, orthopedic injury, osteoporosis Neurological: reports: denies history Endocrine/Immune: reports: denies history Other Conditions: reports: denies history - PRIOR SURGERIES/PROCEDURES Surgical/Procedure History: reports: hysterectomy, - IMMUNIZATION STATUS Childhood Immunizations: See Nurse Assessment Flu Vaccine: See Nurse Assessment - FAMILY HISTORY Family History: reviewed, not pertinent - SOCIAL HISTORY Smoking: less than 1 pack/day Living Situation: alone Physical Exam-General - PHYSICAL EXAM-ADULT Initial Vital Signs Reviewed: Yes - CONSTITUTIONAL General Appearance: alert, moderate distress, obese - EYES Eyes: PERRL/EOMI - HEAD, EARS, NOSE, MOUTH & THROAT HENMT: moist mucous membranes - NECK Neck: non-tender, full range of motion, supple, normal inspection - RESPIRATORY Respiratory: chest non-tender, lungs clear, normal breath sounds, no pleuratic chest pain, no respiratory distress, no accessory muscle use - CARDIOVASCULAR Cardiovascular: normal peripheral pulses, regular rate, rhythm, no edema - GASTROINTESTINAL (ABDOMEN) Abdominal Exam: normal bowel sounds, non tender, soft - LYMPHATIC Lymphatic: no adenopathy - MUSCULOSKELETAL Back Exam: normal inspection Extremity: normal capillary refill, tenderness (tenderness on palpation, movement left shoulder). negative: normal range of motion (painful range of motion to left shoulder), pulse deficit Peripheral Pulses: radial (R): 2+, radial (L): 2+ - SKIN Integumentary: normal color, normal turgor, warm/dry - NEUROLOGIC Neurologic: grossly normal - PSYCHIATRIC Psych/Mental Status: normal mood/affect Progress - PLAN OF CARE/RESULTS Result Diagrams: 01/31/19 07:03 01/31/19 07:03 - REASSESSMENT Reassessment #1 Time Reassessed: 00:00 Status: unchanged (NEGATIVE LAB AND FINDINGS DESCRIBED TO PT AND FAMILY WELL PLAN FOR ADMISSION, REQUEST MORE PAIN RELIEF) - EKG 1 Time of EKG reading by physician:: 20:32 EKG Read and Signed by:: Frantz Gutierrez EKG Interpretation (*Must complete 3 of following elements*): Abnormal Rate: 97 Rhythm: nsr [place]: normal QRS: LBB [place] Interval: normal ST Wave: normal - XRAY 1 XRAY: Left XRAY Study: Shoulder Impression: Abnormal ( Signed EXAM: SHOULDER-LEFT INDICATION: pain TECHNIQUE: 3 views COMPARISON: None. FINDINGS: There are minimal degenerative changes at the AC joint and glenohumeral joint with tiny marginal osteophytes. There is no discrete fracture, dislocation, or significant intrinsi c osseous lesion, otherwise. The surrounding soft tissues are essentially unremarkable. IMPRESSION: Minimal degenerative changes. No evidence of acute osseous abnormality. Electronically signed by Saul Puri 01/27/2019 10:06 PM 01/27/192205 Interpreting Physician: Saul Puri MD Dictated Date/Time: 01/27/192204 cc: Frantz Gutierrez MD; Pratibha Lozada MD) 2 XRAY Study: Chest Impression: Normal ( EXAM: CHEST-PORTABLE INDICATION: cp TECHNIQUE: One view COMPARISON: 08/31/2017 FINDINGS: The lungs are grossly clear. There is no discrete pleural fluid collection or pneumothorax. The cardiomediastinal silhouette and central vasculature are grossly unremarkable. IMPRESSION: No evidence of acute pathology by plain radiograph. Electronically signed by Saul Puri 01/27/2019 10:05 PM 01/27/192204 Interpreting Physician: Saul Puri MD Dictated Date/Time: 01/27/192204 cc: Frantz Gutierrez MD; Pratibha Lozada MD) - CONSULTS/PCP/HOSPITALIST Notification #1 *Consult/PCP/Hospitalist*: Dr Sanchez Time Discussed: 23:45 Reason/Comments: discussed paln of care for pt admit Consult Disposition: Admit Departure - Departure Date of Disposition Decision: 01/28/19 Time of Disposition Decision: 00:01 DIAGNOSIS: Chest pain, atypical, Left shoulder pain, LBBB (left bundle branch block) Disposition: ADMITTED INPATIENT 09 Certified Medical Emergency: Emergent Condition: Stable - Critical Care Note This patient required my direct & personal management of CC.: No Attestation - Physician/ TC Attestation Patient care was provided by Advanced Practice Provider:: No The physician spent face to face time with patient:: Yes Advanced Practice Provider documentation review:: Supervising physician onsite and consulted in the evaluation and care of this patient. The physician did have a face to face encounter with the patient. This chart was documented by the indicated scribe, (Tiny Turcios, Tiffany) and accurately reflects the services I performed and decisions made by me, Frantz Gutierrez MD, as attested by the provider's signature.
== END 2019-02-01 14:36 | disposition home or self-care (01) | DRG 190 ==
LOC: P.ED 20:31 → INTOOBSV 01-28 01:41 → SUATTDRO 01-28 01:41 → P.MEDSURG 01-28 01:41
PROVIDERS: ATTEND Family Medicine
CPT/HCPCS: 71010; 71045; 71250; 73030; 80048; 80104; 80301; 80305; 81001; 82550; 82805; 83735; 83880; 84484; 85025; 85027; 85379; 85610; 85730; 87088; 93005; 93010; 94640; 94761; 96374; 96375; 99285; A9270; G0431; G0434; G0477; J0456; J0696; J1170; J2270; J2405; J2920; J2930

== ENCOUNTER 2019-04-20 23:45 | Inpatient (IN) ==
[2019-04-20] MEDS ORDERED: DUONEB (A & A) INH ONE (23:54)
[2019-04-20] MEDS ORDERED: BENADRYL IV ONE (23:55)
[2019-04-20] MEDS ORDERED: EPINEPHRINE SUBQ ONE (23:55)
[2019-04-20] MEDS ORDERED: SOLU-MEDROL IV ONE (23:55)
[2019-04-21 00:11] LABS: BASO# 0.08 X1000 (0.0-0.2); EOS# 0.45 X1000 (0.0-0.7); EOS% 5.4 % (0.0-10.0); HEMATOCRIT 40.8 % (37.0-47.0); HEMOGLOBIN 13.7 g/dL (12.0-16.0); IMM GRAN# 0.02 X1000 (0.0-0.04); IMM GRAN% 0.2 % (0.0-0.5); LYMPH# 2.73 X1000 (1.2-3.4); LYMPH% 32.9 % (20.5-51.1); MCH 29.9 PG (27-31); MCHC 33.6 g/dL (33-37); MCV 89.1 FL (81-99); MONO# 0.74 X1000 (0.11-0.59); MONO% 8.9 % (1.7-9.3); MPV 9.4 FL (7.4-10.4); NEUT# 4.28 X1000 (1.4-6.5); NEUT% 51.6 % (42.2-75.2); PLT 319 X1000 (130-400); RBC 4.58 XMIL (4.2-5.4); RDW 12.9 % (11.5-14.5)
[2019-04-21 00:38] LABS: ALB/GLOB RATIO 1.7; ALBUMIN 4.7 g/dL (3.5-5.0); CALCIUM 9.8 mg/dL (8.8-10.2); CREATININE 1.6 mg/dL (0.5-0.9); POTASSIUM 4.2 mmol/L (3.5-5.1); TOTAL BILIRUBIN 0.26 mg/dL (0.20-1.00); TOTAL PROTEIN 7.5 g/dL (6.3-8.3)
[2019-04-21] MEDS ORDERED: S2 RACEPINEPHRINE 2.25% INH ONE (02:10)
--- NOTE | 2019-04-21 03:22 | PROVIDER DOCUMENTATION ---
This chart was entered by Alice Puri Scribe, acting as scribe for Louie Carvalho MD. HPI-Respiratory General - General Stated Complaint: THROAT FEELS LIKE IT IS CLOSING UP Time Seen by Provider: 04/20/19 23:54 Source: patient Allergies/Adverse Reactions: Patient Allergies Allergy/AdvReac Type Severity Reaction Status Date / Time albuterol AdvReac Unknown Verified 07/29/17 12:08 Home Medications: Home Medication List Medication Instructions Recorded Confirmed Last Taken Type Clonazepam [Klonopin] 0.5 mg PO QAM 09/05/12 01/28/19 1 Day Ago History ~07/22/17 ATORVAstatin [Lipitor] 10 mg PO QHS #0 tablet 12/14/12 01/28/19 1 Day Ago Rx ~07/22/17 Hydralazine [Apresoline] 50 mg PO BID #0 tablet 12/14/12 01/28/19 1 Day Ago Rx ~07/22/17 Amlodipine [Norvasc] 10 mg PO QHS 05/05/15 01/28/19 1 Day Ago History ~07/22/17 Citalopram [Celexa] 40 mg PO QHS 05/05/15 01/28/19 1 Day Ago History ~07/22/17 Clonazepam [Klonopin] 1 mg PO HS 10/30/16 01/28/19 1 Day Ago History ~07/22/17 Etodolac 400 mg PO BID 10/30/16 01/28/19 1 Day Ago History ~07/22/17 Losartan Potassium [Cozaar] 100 mg PO DAILY #30 tab 09/01/17 01/28/19 Unknown Rx Aspirin [Adult Aspirin] 81 mg PO DAILY 01/28/19 01/28/19 Unknown History Tramadol [Ultram] 50 mg PO Q8HR 01/28/19 01/28/19 Unknown History Tramadol [Ultram] 100 mg PO QHS 01/28/19 01/28/19 Unknown History Azithromycin [Zithromax] 500 mg PO DAILY #3 tab 02/01/19 Unknown Rx CefDINIR [Omnicef] 300 mg PO BID #6 cap 02/01/19 Unknown Rx ENALApril [Vasotec] 20 mg PO BID tab 02/01/19 Unknown Rx Fluticasone/Vilant 200/25 INH 1 puff INH RTDAILY inhaler 02/01/19 Unknown Rx [Breo Ellipta 200/25 Mcg INH] Methylprednisolone [Medrol Dosepak] 4 mg PO DIRECTED #1 pkg 02/01/19 Unknown Rx [place]-3 Fatty Acids [Fish Oil 1,000 mg PO QHS cap 02/01/19 Unknown Rx Concentrate] - History of Present Illness-Resp Nature of Presenting Problem: 63 yof c/o cough, sob, throat swelling. pt req immediate attention among ar rival. pt in moderate distress. pt has mild stridor and bilat wheezing. denies loc, fever and chills. Review of Systems - Adult - REVIEW OF SYSTEMS - ADULT Constitutional: reports: no symptoms reported. denies: chills, fever, night sweats Eyes: reports: no symptoms reported Ears, Nose, Mouth & Throat: reports: no symptoms reported Cardiovascular: reports: no symptoms reported Respiratory: reports: see HPI, cough, shortness of breath, wheezing, other (stridor). denies: excessive sputum production, hemoptysis, pleurisy Gastrointestinal: reports: no symptoms reported Genitourinary: reports: no symptoms reported Musculoskeletal: reports: no symptoms reported Integumentary: reports: no symptoms reported Neurological: reports: no symptoms reported Psychiatric: reports: no symptoms reported Endocrine: reports: no symptoms reported Hematologic/Lymphatic: reports: no symptoms reported Allergic/Immunologic: reports: no symptoms reported All Other Systems: Reviewed and Negative Past History - Adult - PAST MEDICAL HISTORY-ADULT Review of Records: reports: Old Records Reviewed, Nursing Assessment Review, Medications Reviewed, Social history reviewed & non-contributory. Major Childhood Illnesses: reports: denies history Cardiovascular: reports: CHF, HTN, other (blockage) Respiratory: reports: COPD Gastrointestinal: reports: GERD Obstetrical/Gynecological: reports: denies history Genitourinary: reports: denies history Musculoskeletal: reports: arthritis, chronic pain, orthopedic injury, osteoporosis Neurological: reports: denies history Psychiatric: reports: anxiety, depression (mdd) Endocrine/Immune: reports: denies history Other Conditions: reports: denies history - PRIOR SURGERIES/PROCEDURES Surgical/Procedure History: reports: hysterectomy, joint replacement - IMMUNIZATION STATUS Childhood Immunizations: See Nurse Assessment Flu Vaccine: See Nurse Assessment - FAMILY HISTORY Family History: reviewed, not pertinent - SOCIAL HISTORY Smoking: other (former) Substance Use: none/never Physical Exam-General - PHYSICAL EXAM-ADULT Initial Vital Signs Reviewed: Yes - CONSTITUTIONAL General Appearance: alert, moderate distress. negative: cachetic, lethargic, obtunded - EYES Eyes: PERRL/EOMI, pink conjunctivae - HEAD, EARS, NOSE, MOUTH & THROAT HENMT: normocephalic/atraumatic, moist mucous membranes, normal ENT inspection - NECK Neck: non-tender, full range of motion, supple, normal inspection - RESPIRATORY Respiratory: chest non-tender, no pleuratic chest pain, no accessory muscle use, respiratory distress, decreased breath sounds (bilat), stridor (mild), wheezing (bilat). negative: lungs clear, normal breath sounds, no respiratory distress - CARDIOVASCULAR Cardiovascular: normal peripheral pulses, regular rate, rhythm - GASTROINTESTINAL (ABDOMEN) Abdominal Exam: normal bowel sounds, non tender, soft - LYMPHATIC Lymphatic: no adenopathy - MUSCULOSKELETAL Back Exam: normal inspection, no CVA tenderness, no vertebral tenderness Extremity: normal range of motion, non-tender, normal inspection - SKIN Integumentary: normal color, normal turgor, warm/dry - NEUROLOGIC Neurologic: grossly normal, no motor/sensory deficits - PSYCHIATRIC Psych/Mental Status: normal mood/affect, normal thought content, normal thought process, oriented x 3 Progress - PLAN OF CARE/RESULTS Progress/Plan/Lab Results: Vital Signs - 8 hr 04/21/19 00:10 04/21/19 01:19 04/21/19 02:24 Temperature 99.1 F Pulse Rate 122 H 122 H 109 H Respiratory Rate 30 H 30 H 15 Blood Pressure 186/96 O2 Sat by Pulse Oximetry 90 L Laboratory Results - last 24 hr 04/21/19 04/21/19 04/21/19 00:02 00:02 00:02 WBC 8.30 RBC 4.58 Hgb 13.7 Hct 40.8 MCV 89.1 MCH 29.9 MCHC 33.6 RDW Std Deviation 12.9 Plt Count 319 MPV 9.4 Immature Gran % (Auto) 0.2 Neut % (Auto) 51.6 Lymph % (Auto) 32.9 Roberts % (Auto) 8.9 Eos % (Auto) 5.4 Baso % (Auto) 1.0 H Immature Gran # (Auto) 0.02 Neut # (Auto) 4.28 Lymph # (Auto) 2.73 Roberts # (Auto) 0.74 H Eos # (Auto) 0.45 Baso # (Auto) 0.08 Sodium 142 Potassium 4.2 Chloride 106 Carbon Dioxide 23 L Anion Gap 13 BUN 13 Creatinine 1.6 H Estimated GFR/1.73 m2 33 BUN/Creatinine Ratio 8 Glucose 123 H Calculated Osmolality 285 Calcium 9.8 Total Bilirubin 0.26 AST 18 ALT 17 Alkaline Phosphatase 105 H Troponin T < 0.010 Total Protein 7.5 Albumin 4.7 Globulin 2.8 Albumin/Globulin Ratio 1.7 Orders Category Date Time Status CHEST-PORTABLE [RAD] Stat Exams 04/20/19 23:56 Taken CBC WITH ELECTRONIC DIFF [HEME] Stat Lab 04/21/19 00:02 Completed COMPREHENSIVE METABOLIC PANEL [CHEM] Stat Lab 04/21/19 00:02 Completed TROPONIN T Stat Lab 04/21/19 00:02 Completed Albuterol 2.5MG/Ipratrop 0.5MG [Duoneb (A & A)] Med 04/20/19 23:54 Discontinued 3 ml INH NOW ONE Diphenhydramine [Benadryl] Med 04/20/19 23:55 Discontinued 25 mg IV NOW ONE Epinephrine Med 04/20/19 23:55 Discontinued 0.3 mg SUBQ NOW ONE Methylprednisolone Sod Succ [Solu-Medrol] Med 04/20/19 23:55 Discontinued 125 mg IV NOW ONE Racepinephrine 2.25% [S2 Racepinephrine 2.25%] Med 04/21/19 02:10 Discontinued 1 each INH NOW ONE Sodium Chloride 0.9% Neb [Ns Neb] Med 04/21/19 02:15 Active 5 ml INH DIRECTED Aerosol Treatments Routine Oth 04/20/19 23:54 Completed Aerosol Treatments Routine Oth 04/21/19 02:10 Completed Aerosol Treatments Stat Oth 04/20/19 23:54 Completed Aerosol Treatments Stat Oth 04/21/19 02:10 Completed Result Diagrams: 04/21/19 00:02 04/21/19 00:02 - REASSESSMENT Reassessment #1 Time Reassessed: 01:13 Status: improving (pt throat feeeling better, stridor resolved, mild wheezing.) Reassessment #2 Time Reassessed: 02:10 Status: worsening (complains of worsening throat swelling. No stridor on exam, racemic epi ordered.) Reassessment #3 Time Reassessed: 03:20 Status: improving (throat feels better, but still dyspneic and O2 requiring) - EKG 1 Time of EKG reading by physician:: 23:56 EKG Read and Signed by:: Louie Carvalho EKG Interpretation (*Must complete 3 of following elements*): Abnormal Rate: 101 Rhythm: Sinus Tachycardia [place]: normal QRS: LBB [place] Interval: normal ST Wave: normal Departure - Departure Date of Disposition Decision: 04/21/19 Time of Disposition Decision: 03:21 DIAGNOSIS: Shortness of breath Disposition: ADMITTED INPATIENT 09 Certified Medical Emergency: Emergent Condition: Serious Referrals and Follow-Ups: None,PCP [Primary Care Provider] - - Critical Care Note This patient required my direct & personal management of CC.: Yes Total Time (mins): 34 Critical Care Statement: This patient required my direct personal management to treat or rule out processes, the absence of which, could potentiallly result in sudden, clinically significant life or limb threatening deterioration. Attestation - Physician/ TC Attestation Patient care was provided by Advanced Practice Provider:: No The physician spent face to face time with patient:: Yes Advanced Practice Provider documentation review:: Supervising physician onsite and consulted in the evaluation and care of this patient. The physician did have a face to face encounter with the patient. This chart was documented by the indicated scribe, (Alice Puri Scribe) and accurately reflects the services I performed and decisions made by me, Louie Carvalho MD, as attested by the provider's signature.
--- NOTE | 2019-04-21 03:23 | EKG Report ---
Test Performed on : 04/20/2019 11:56:13 PM Test Reason : THROAT FEELING TIGHT Blood Pressure : / mmHG Vent. Rate : 101 BPM Atrial Rate : 101 BPM P-R Int : 148 ms QRS Dur : 148 ms QT Int : 398 ms P-R-T Axes : 029 -15 135 degrees QTc Int : 516 ms Sinus tachycardia. Left bundle branch block Abnormal ECG When compared with ECG of 28-JAN-2019 08:28, No significant change was found Unconfirmed Result
[2019-04-21] MEDS ORDERED: VENTOLIN HFA INH PRN (04:26)
[2019-04-21] MEDS ORDERED: ATIVAN IV ONE (05:56)
[2019-04-21] MEDS ORDERED: DUONEB (A & A) INH ONE (06:30)
[2019-04-21] MEDS ORDERED: BENADRYL IV PRN (07:57)
[2019-04-21] MEDS ORDERED: ZOFRAN IV PRN (07:57)
--- NOTE | 2019-04-21 08:00 | HISTORY AND PHYSICAL ---
CHIEF COMPLAINT: Allergic reaction. HISTORY OF PRESENT ILLNESS: Ms. Schwartz is a 63-year-old female who came into the Emergency Room tonight after having shortness of breath. She felt as if she was having an allergic reaction and her throat was closing up. She is not sure what she would have had a reaction to. She does have a history of asthma, COPD, GERD, CHF, hypertension, and arthritis with chronic pain. She was tachypneic, requiring oxygen, and having accessory muscle use in the Emergency Room and she was noted to have some stridor. On arrival she was given Solu-Medrol, epinephrine, Benadryl, breathing treatments and eventually racemic epi. During my assessment she was still tachypneic with mild accessory muscle use and requiring oxygen, however, she was not having any stridor. She will be admitted for further evaluation and treatment. PAST MEDICAL HISTORY: See HPI. PREVIOUS SURGICAL HISTORY: section, hysterectomy, bilateral hip replacement, and left femur repair. FAMILY HISTORY: Father had ischemic heart disease with a myocardial infarction. Mother had ischemic heart disease and hypertension. SOCIAL HISTORY: Former smoker. She quit 2 years ago. No alcohol or illicit drugs. ALLERGIES: Mild to albuterol. HOME MEDICATIONS: 1. Klonopin 0.5 mg p.o. every a.m. and 1 mg nightly at bedtime. 2. Atorvastatin 10 mg p.o. nightly at bedtime. 3. Hydralazine 50 mg p.o. b.i.d. 4. Celexa 40 mg p.o. nightly at bedtime. 5. Amlodipine 10 mg p.o. nightly at bedtime. 6. Inderal LA 40 mg p.o. b.i.d. 7. Aspirin 81 mg p.o. daily. 8. Ultram 100 mg p.o. nightly at bedtime and 50 mg every 8 hours p.r.n. 9. [place]-3 fish oil 1,000 mg p.o. nightly at bedtime. 10.Breo Ellipta 200 mcg/25 mcg one puff daily. 11.Albuterol HFA two puffs inhalation p.r.n. 12.Trazodone 150 mg p.o. nightly at bedtime. 13.Losartan potassium 100 mg p.o. nightly at bedtime. REVIEW OF SYSTEMS: A 14 point review of systems was conducted with the patient and pertinent positives are listed above in the HPI. All other systems were reviewed and found to be negative. PHYSICAL EXAMINATION: VITAL SIGNS: Temp 99.1, pulse 108, respirations 24, blood pressure 180/90, and oxygen saturation 95% on 2 L nasal cannula. GENERAL: A 63-year-old female mildly tachypneic lying in the E.R. stretcher in no acute distress. HEENT: Head is atraumatic, normocephalic. Pupils are equal, round, and reactive to light. Extraocular eye movement intact. Sclerae are nonicteric. Conjunctivae are pink. Oral mucosa is moist. NECK: Supple. No JVD. No thyromegaly. Trachea is midline. No cervical lymphadenopathy. CARDIAC: S1 and S2 are appreciated. No murmurs, gallops, or rubs. LUNGS: Decreased bilaterally. Prolonged expiratory phase. No rhonchi, no wheezes, and no rales. Symmetric rise and fall of respiration. Mild accessory muscle use. The patient is tachypneic. ABDOMEN: Soft, nondistended, and nontender. Bowel sounds are present in all 4 quadrants, normoactive. No pulsatile mass. No organomegaly. EXTREMITIES: No clubbing, cyanosis, or edema. 2+ pedal pulses bilaterally. GENITOURINARY: No bladder distention. The patient voids. Otherwise deferred. NEUROLOGICAL: Alert and oriented times 3. Cranial nerves 2 through 12 are grossly intact. DIAGNOSTIC DATA: Chest x-ray shows poor inspiratory effort. LABORATORY DATA: CBC is within normal limits. Chemistry is within normal limits other than a carbon dioxide of 23, a creatinine of 1.6, and glucose of 123. ASSESSMENT AND PLAN: 1. Allergic reaction versus asthma attack. The patient received medications in the Emergency Room. She is breathing better now and we will continue Benadryl every 6 hours as needed. Continue home bronchodilators and DuoNebs every 6 hours as needed. 2. Chronic obstructive pulmonary disease with mild exacerbation. See above. 3. Hypertension. Continue home medications. 4. Acute kidney injury. We will give fluids and recheck laboratory data. Further recommendations per patient's clinical course. Dictated by BAILEY Lacy for Josh Osuna MD I have performed a face to face diagnostic evaluation. Labs/ Xrays- reviewed. Exam- chest - clear, CV- regular. A/P- Suspected Allergic Rx- Admit, supportive care, everardo Riggs . Dr. Osuna cc: BAILEY Lacy MD Adnan A. Seljuki, MD [facility]
[2019-04-21] MEDS: APRESOLINE PO SCH ×2 (08:25→20:27)
[2019-04-21] MEDS: ULTRAM PO SCH ×4 (08:25→20:25)
[2019-04-21] MEDS: NS 1,000 ML IV SCH ×2 (08:26→20:24)
[2019-04-21] MEDS: LOVENOX SUBQ SCH (08:26)
[2019-04-21] MEDS: KLONOPIN PO SCH ×2 (08:26→20:27)
[2019-04-21] MEDS: ASPIRIN EC PO SCH (08:26)
--- NOTE | 2019-04-21 08:36 | Diag Imaging Result Doc PS360 ---
EXAM: CHEST-PORTABLE INDICATION: Dyspnea TECHNIQUE: One view COMPARISON: 01/27/2019 FINDINGS: Inspiration is suboptimal. The lungs are grossly clear. There is no discrete pleural fluid collection or pneumothorax. The cardiac silhouette appears mildly prominent which is probably, at least in part, due to magnification from AP technique. Central vasculature is unremarkable. IMPRESSION: Low lung volumes and mildly prominent cardiac silhouette. Electronically signed by Saul Puri 04/21/2019 8:33 AM
[2019-04-21] MEDS: BREO ELLIPTA 200/25 MCG INH INH SCH (08:58)
[2019-04-21] MEDS ORDERED: DUONEB (A & A) INH SCH (10:00)
[2019-04-21] MEDS ORDERED: XOPENEX NEB INH PRN (11:19)
[2019-04-21] MEDS ORDERED: NS NEB INH SCH (11:30)
[2019-04-21] MEDS: XOPENEX NEB INH SCH ×4 (11:33→23:50)
[2019-04-21] MEDS: NS NEB INH SCH ×2 (11:33→15:45)
[2019-04-21] MEDS: LEVAQUIN 750 MG/D5W 750 MG/150 ML IVPB IV SCH (11:52)
[2019-04-21] MEDS: SOLU-MEDROL IV SCH ×2 (11:52→20:25)
[2019-04-21] MEDS: DOXYCYCLINE 100 MG in NS 250 ML IV SCH ×2 (11:52→23:32)
--- NOTE | 2019-04-21 12:39 | PROGRESS NOTE ---
DATE: 04/21/2019 SUBJECTIVE: Today Ms. Schwartz refers to continue having difficulty breathing, obviously wheezing very audibly. She is not hoarse at this time. OBJECTIVE: Vital signs: Blood pressure is 133/73, pulse of 100, respiration is 19, temperature is 98.1 degrees. General: Ms Schwartz is a 63-year-old female. She is in bed, mild distress. HEENT: Mucosa is pink and moist. Anicteric. Acyanotic. Neck: Supple. Chest: Air entry is bilaterally reduced. There is diffuse bilateral expiratory wheezing with prolonged expiratory phase of respiration. Cardiovascular: Slightly tachycardic but no murmurs. Abdomen: Soft, distended but nontender. Extremities: No pedal edema. Central nervous system: Patient is awake, alert, and oriented. LABORATORY DATA: Has been reviewed, unremarkable except for creatinine of 1.6. The patient was discharged from the hospital in January with a normal creatinine. ASSESSMENT: 1. Acute hypoxemic respiratory failure on presentation. I think this is probably more related to chronic obstructive pulmonary disease exacerbation. The patient is currently on oxygen therapy and she seems to be saturating very well now. 2. Acute bronchospasm secondary to chronic obstructive pulmonary disease exacerbation. We will start the patient on steroids, antibiotics and bronchodilation therapy. We will also get Pulmonary Medicine to evaluate the patient. 3. History of laryngeal mass. According to Ms. Schwartz, she has been evaluated by ENT in [place], and she has been told that there are 2 white spots on her larynx and that she was supposed to go back for removal of those spots, but she has not been able to go. At this point, she does not sound hoarse. It is very possible that her current symptoms could have been exacerbated by the upper airway disease, but I do not think that is what is driving the main force of the disease process. We will encourage her to follow up once she gets discharged. 4. Questionable allergic reaction, unsure. Patient did complain of some tickling sensation in the throat and upon presentation she was treated for allergic reaction. It sounds at this point that it is probably more of chronic obstructive pulmonary disease exacerbation that precipitated her upper airway disease. 5. Acute kidney injury. We will continue with gentle hydration. I have also withheld her losartan because of the renal impairment and the ongoing cough. ARBs do not frequently cause a cough. There is however, very small percentage of patients who do have this reaction with this group of medications. 6. Obese with predominant central disposition. I think this is probably due to chronic steroid use over the years giving her the cushingoid features. cc: Casey Coates MD MTDD
[2019-04-21] MEDS: CELEXA PO SCH (20:25)
[2019-04-21] MEDS: DESYREL PO SCH (20:25)
[2019-04-21] MEDS: NORVASC PO SCH (20:26)
[2019-04-21] MEDS: FISH OIL CONCENTRATE PO SCH (20:27)
[2019-04-21] MEDS: LIPITOR PO SCH (20:27)
[2019-04-21] MEDS ORDERED: COZAAR PO SCH (21:00)
[2019-04-21] MEDS ORDERED: BLISTEX MEDICATED BERRY LIP BALM TOP PRN (23:32)
[2019-04-22] MEDS: SOLU-MEDROL IV SCH ×3 (03:25→21:03)
[2019-04-22] MEDS: XOPENEX NEB INH SCH ×6 (03:30→22:36)
[2019-04-22 03:54] LABS: ALLEN TEST YES; BE -3.4 mmoll (-3.0-3.0); BLOOD TYPE ARTERIAL; HCO3-(ACT) 22.2 mmoll (20.0-26.0); METHB 1.5 % (0.0-1.5); O2(CT) 17.2 mL/dL (15.0-23.0); O2HB 95.3 % (95.0-99.0); PCO2(98.6) 30 mmHg (35-45); PO2(98.6) 93 mmHg (60-100); SAMPLE BLOOD; SAO2 97.6 % (95.0-100.0); THB 12.8 g/dL (11.5-17.4); pH(98.6) 7.43 (7.35-7.45)
[2019-04-22 03:55] LABS: MODALITY CANNULA
[2019-04-22 07:33] LABS: BASO# 0.01 X1000 (0.0-0.2); BASO% 0.1 % (0.0-0.8); HEMATOCRIT 36.4 % (37.0-47.0); HEMOGLOBIN 12.2 g/dL (12.0-16.0); IMM GRAN# 0.04 X1000 (0.0-0.04); IMM GRAN% 0.3 % (0.0-0.5); LYMPH# 0.55 X1000 (1.2-3.4); MCH 30.1 PG (27-31); MCHC 33.5 g/dL (33-37); MCV 89.9 FL (81-99); MONO# 0.25 X1000 (0.11-0.59); MONO% 1.8 % (1.7-9.3); MPV 9.7 FL (7.4-10.4); NEUT# 13.05 X1000 (1.4-6.5); NEUT% 93.8 % (42.2-75.2); PLT 293 X1000 (130-400); RBC 4.05 XMIL (4.2-5.4); RDW 13.1 % (11.5-14.5)
[2019-04-22] MEDS: BREO ELLIPTA 200/25 MCG INH INH SCH (07:49)
[2019-04-22] MEDS: NS NEB INH SCH ×3 (07:51→15:39)
[2019-04-22 07:58] LABS: AGAP 15; BUN 17 mg/dL (8-22); CALCIUM 9.6 mg/dL (8.8-10.2); CHLORIDE 105 mmol/L (98-107); COSMO 291; CREATININE 0.8 mg/dL (0.5-0.9); ESTIMATED GFR > 60; GLUCOSE 247 mg/dL (70-104); POTASSIUM 4.1 mmol/L (3.5-5.1); SODIUM 141 mmol/L (136-145); TCO2 21 mmol/L (25-35)
--- NOTE | 2019-04-22 08:01 | CONSULTATION ---
DATE OF CONSULTATION: 04/22/2019 CHIEF COMPLAINT: Shortness of breath. HISTORY OF PRESENT ILLNESS: This is a 63-year-old female who presented to the emergency department after having shortness of breath. She has a past medical history of asthma, COPD, GERD, congestive heart failure, hypertension. Recent chest x-ray revealed low lung volumes. PAST MEDICAL HISTORY: See HPI. PAST SURGICAL HISTORY: section, hysterectomy, bilateral hip replacement, and left femur repair. FAMILY HISTORY: Father with heart disease. Mother with hypertension and ischemic heart disease. SOCIAL HISTORY: Former smoker, quit 2 years ago. Denies alcohol or illicit drug use. ALLERGIES: Albuterol (mild). HOME MEDICATIONS: See reconciliation list. REVIEW OF SYSTEMS: A 10-point review of systems was conducted and the pertinent was listed within the HPI, otherwise noncontributory. PHYSICAL EXAMINATION: Vital Signs: Temperature 99.1, pulse 108, respirations 24, blood pressure 180/90, O2 saturation 95% with O2 at 2 L per nasal cannula. General: This is a 63-year-old female who is with a complaint of shortness of breath at the present time, frequent coughing spells. HEENT: Head is atraumatic, normocephalic. Pupils equal, round, and reactive to light and accommodation. Oral mucosa moist. Neck: Supple. Trachea midline. Cardiac: S1 and S2 auscultated. No murmurs, gallops, or rubs. Respiratory: Decreased breath sounds bilaterally. Nonlabored. Abdomen: Soft, nondistended, nontender. Bowel sounds present in all 4 quadrants. Extremities: No clubbing, cyanosis, or edema. There are +2 pedal pulses bilaterally. Neurological: Alert and oriented x3. DIAGNOSTIC DATA: Chest x-ray shows poor inspiratory effort. LABORATORY DATA: White blood cells 13.90, red blood cells 4.05, hematocrit 36.4. PH 7.43, pCO2 of 30, PO2 of 93, HC03 of 22.2, base excess -3.4, oxyhemoglobin 95.3. Sodium 142, potassium 4.2, glucose 123. ASSESSMENT AND PLAN: 1. Chronic obstructive pulmonary disease exacerbation and asthma. Continue steroids, bronchodilators, and antibiotics as prescribed. Continue supplemental oxygen as needed per protocol. 2. Hypertension. Continue home medications. 3. Hyperlipidemia. Continue Lipitor. 4. Continue deep venous thrombosis prophylaxis with Lovenox subcutaneously. Thank you for the courtesy of this consult. cc: Nabila Collins MD
[2019-04-22] MEDS: ASPIRIN EC PO SCH (08:09)
[2019-04-22] MEDS: APRESOLINE PO SCH ×2 (08:09→21:05)
[2019-04-22] MEDS: LOVENOX SUBQ SCH (08:09)
[2019-04-22] MEDS: KLONOPIN PO SCH ×2 (08:09→21:04)
[2019-04-22 08:34] LABS: BANDS 6 % (0-1); LYMPHS 4 % (21-51); SEGS 90 % (42-75)
--- NOTE | 2019-04-22 11:42 | PROGRESS NOTE ---
DATE: 04/22/2019 SUBJECTIVE: This morning, Ms. Schwartz refers to be doing a little better, that the breathing is getting better. She is not wheezing that hard. OBJECTIVE: Vital Signs: Blood pressure is 136/73, pulse of 105, respirations 17, temperature is 96.7 degrees, the patient is saturating 97% on 4 L. General: Ms. Schwartz is a 63-year-old female. She is in bed. No distress. HEENT: Mucosa is pink and moist. Anicteric. Acyanotic. Neck: Supple. No JVD. Chest: Air entry is bilaterally reduced. There are still diffuse end expiratory wheezing, but less pronounced than yesterday. No crackles. Cardiovascular: Regular rate and rhythm. No murmurs, no rubs, no gallops. GI: Abdomen is soft, distended, but nontender. Extremities: No pedal edema. ASSISTED LIVING ASSOCIATE: The patient is awake, alert, and oriented. LABORATORY DATA: CBC is reviewed. The patient has leukocytosis, presumably from the steroids. The chemistry is completely within normal range. ASSESSMENT: 1. Acute hypoxemic respiratory failure on presentation, improving. The patient is down to about 3 to 4 liters on nasal cannula, and saturating pretty well. 2. Acute bronchospasm secondary to chronic obstructive pulmonary disease exacerbation. The patient still has some diffuse wheezing, but less pronounced than yesterday. She is on steroids, bronchodilation therapy, and antibiotics, and has been evaluated by Pulmonary Medicine. 3. History of laryngeal mass. The patient will follow up with ENT in [place]. 4. Questionable allergic reaction. 5. Acute kidney injury, improved. 6. Obese with body mass index of 36.1, with management advised. 7. Hyperglycemia, presumably due to steroid use. Will check her A1c to make sure that there is not any underlying diabetes mellitus. So for today, we are going to discontinue the intravenous fluids, encourage the patient to hydrate per mouth, continue with antimicrobial therapy, steroids, and bronchodilation therapy. Will re- evaluate her tomorrow. cc: Casey Coates MD
[2019-04-22] MEDS: ULTRAM PO SCH ×4 (13:13→21:04)
[2019-04-22] MEDS: LEVAQUIN 750 MG/D5W 750 MG/150 ML IVPB IV SCH (13:17)
[2019-04-22] MEDS: DOXYCYCLINE 100 MG in NS 250 ML IV SCH ×2 (13:17→22:39)
[2019-04-22] MEDS: FISH OIL CONCENTRATE PO SCH (21:04)
[2019-04-22] MEDS: NORVASC PO SCH (21:04)
[2019-04-22] MEDS: DESYREL PO SCH (21:04)
[2019-04-22] MEDS: LIPITOR PO SCH (21:04)
[2019-04-22] MEDS: CELEXA PO SCH (21:05)
[2019-04-23] MEDS: SOLU-MEDROL IV SCH ×2 (03:23→18:11)
[2019-04-23] MEDS: XOPENEX NEB INH SCH ×6 (03:54→23:12)
[2019-04-23] MEDS: BREO ELLIPTA 200/25 MCG INH INH SCH (07:32)
[2019-04-23] MEDS: NS NEB INH SCH ×2 (07:33→15:19)
[2019-04-23 07:35] LABS: HEMOGLOBIN A1C 6.6 % (4.8-6.0)
[2019-04-23] MEDS: APRESOLINE PO SCH ×2 (08:36→21:22)
[2019-04-23] MEDS: ASPIRIN EC PO SCH (08:36)
[2019-04-23] MEDS: KLONOPIN PO SCH ×2 (08:36→21:22)
[2019-04-23] MEDS: ULTRAM PO SCH ×4 (08:36→21:22)
[2019-04-23] MEDS: LOVENOX SUBQ SCH (08:37)
--- NOTE | 2019-04-23 12:30 | PROGRESS NOTE ---
DATE: 04/23/2019 SUBJECTIVE: This morning, Ms. Schwartz refers to be doing okay. Still has some residual cough and wheezing. OBJECTIVE: Vital signs: Blood pressure is 146/68, pulse of 94, respirations 16, temperature 97.7 degrees. The patient is saturating 96% on nasal cannula. General: Ms. Schwartz is a 63-year-old female. She is in bed, no distress. HEENT: Mucosa is pink and moist. Anicteric. Acyanotic. Neck: Supple. Chest: Air entry is still bilaterally reduced. There is diffuse wheezing in both lungs. There is prolonged expiratory phase of respiration. No crackles. Cardiovascular: Regular rate and rhythm. Abdomen: Soft. Extremities: No pedal edema. CURRENT MEDICATIONS: Have all been reviewed. ASSESSMENT: 1. Acute hypoxemic respiratory failure on presentation, improved. 2. Acute bronchospasm secondary to chronic obstructive pulmonary disease exacerbation. The patient continues to be bronchospastic. We are going to continue with the current therapy including bronchodilation, antimicrobial and steroids. 3. History of laryngeal mass. The patient follows up with ENT in [place]. 4. Acute kidney injury, resolved. 5. Obesity with BMI of 36.1. 6. Newly diagnosed diabetes mellitus with A1c of 6.6. The patient will continue on sliding scale. I think she will be okay going home on metformin alone. cc: Casey Coates MD
[2019-04-23] MEDS: LEVAQUIN 750 MG/D5W 750 MG/150 ML IVPB IV SCH (12:32)
[2019-04-23] MEDS: DOXYCYCLINE 100 MG in NS 250 ML IV SCH (12:32)
[2019-04-23] MEDS: HUMULIN R SUBQ SCH ×2 (16:33→21:21)
--- NOTE | 2019-04-23 17:13 | PULMONOLOGY PROGRESS NOTE ---
DATE: 04/23/2019 SUBJECTIVE: The patient is awake, alert, and conversant. She does have some audible wheezing. She is without other complaints. OBJECTIVE: The patient has been afebrile for the last 24 hours. Blood pressure 137/73, heart rate 95, respiratory rate 18, oxygen saturation 98% on nasal cannula.HEENT: Pupils are equal and reactive. Oropharynx is clear. Neck: Supple. Chest: Reveals scattered wheezing throughout all lung olivas. Cardiac: S1-S2. Abdomen: Soft without hepatosplenomegaly. Extremities: Without edema. LABORATORIES: No new chemistries or CBC. IMPRESSION: 1. 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 2. History of vocal cord abnormality. The patient denies history of a mass. She describes having either candidiasis or leukoplakia requiring ear, nose and throat followup. 3. History of tobacco use but nonsmoker for 2 years. 4. Acute hypoxemic respiratory failure. PLAN: 1. Continue steroids. These appear to have been discontinued and I will reinitiate steroids given her ongoing bronchospasm. 2. Continue current antibiotic regimen. 3. Recommend outpatient pulmonary function studies and pulmonary followup. cc: Enrrique Tejeda MD
[2019-04-23] MEDS: CELEXA PO SCH (21:21)
[2019-04-23] MEDS: NORVASC PO SCH (21:21)
[2019-04-23] MEDS: FISH OIL CONCENTRATE PO SCH (21:22)
[2019-04-23] MEDS: DESYREL PO SCH (21:22)
[2019-04-23] MEDS: LIPITOR PO SCH (21:22)
[2019-04-24] MEDS: DOXYCYCLINE 100 MG in NS 250 ML IV SCH ×3 (00:06→23:24)
[2019-04-24] MEDS: SOLU-MEDROL IV SCH ×3 (01:38→17:40)
[2019-04-24] MEDS: XOPENEX NEB INH SCH ×6 (03:10→23:32)
[2019-04-24] MEDS: HUMULIN R SUBQ SCH ×4 (06:43→20:32)
[2019-04-24] MEDS: BREO ELLIPTA 200/25 MCG INH INH SCH (08:18)
[2019-04-24 08:36] LABS: HEMATOCRIT 36.3 % (37.0-47.0); HEMOGLOBIN 12.1 g/dL (12.0-16.0); IMM GRAN# 0.16 X1000 (0.0-0.04); IMM GRAN% 1.2 % (0.0-0.5); LYMPH% 4.6 % (20.5-51.1); MCH 29.9 PG (27-31); MCHC 33.3 g/dL (33-37); MCV 89.6 FL (81-99); MONO# 0.25 X1000 (0.11-0.59); MONO% 1.9 % (1.7-9.3); MPV 9.4 FL (7.4-10.4); NEUT# 12.05 X1000 (1.4-6.5); NEUT% 92.3 % (42.2-75.2); PLT 288 X1000 (130-400); RBC 4.05 XMIL (4.2-5.4); RDW 12.9 % (11.5-14.5); WBC 13.06 X1000 (4.8-10.8)
[2019-04-24 08:42] LABS: AGAP 13; ALB/GLOB RATIO 1.7; ALBUMIN 4.1 g/dL (3.5-5.0); ALKALINE PHOSPHATASE 77 U/L (32-104); BUN 22 mg/dL (8-22); CALCIUM 9.2 mg/dL (8.8-10.2); CHLORIDE 100 mmol/L (98-107); COSMO 282; CREATININE 0.9 mg/dL (0.5-0.9); ESTIMATED GFR > 60; GLUCOSE 220 mg/dL (70-104); GOT 17 U/L (10-30); GPT 17 U/L (10-36); POTASSIUM 4.1 mmol/L (3.5-5.1); SODIUM 136 mmol/L (136-145); TCO2 23 mmol/L (25-35); TOTAL PROTEIN 6.5 g/dL (6.3-8.3)
[2019-04-24 08:49] LABS: LYMPHS 4 % (21-51); MONO 4 % (1-9); SEGS 92 % (42-75)
[2019-04-24] MEDS: ULTRAM PO SCH ×4 (10:18→20:31)
[2019-04-24] MEDS: KLONOPIN PO SCH ×2 (10:19→20:32)
[2019-04-24] MEDS: ASPIRIN EC PO SCH (10:19)
[2019-04-24] MEDS: APRESOLINE PO SCH ×2 (10:19→20:28)
[2019-04-24] MEDS: LOVENOX SUBQ SCH (10:19)
[2019-04-24] MEDS: LEVAQUIN 750 MG/D5W 750 MG/150 ML IVPB IV SCH (12:21)
[2019-04-24] MEDS ORDERED: LANTUS INSULIN SUBQ ONE (13:03)
--- NOTE | 2019-04-24 13:36 | PROGRESS NOTE ---
DATE: 04/24/2019 SUBJECTIVE: This morning Ms. Schwartz refers to be doing fairly okay. However, she remains pretty tight in her chest with wheezing. OBJECTIVE: Vital Signs: Blood pressure is 121/54, pulse of 79, respirations 18, temperature 97.6 degrees. General: Ms. Schwartz is a 63-year-old morbidly obese, female. She is in bed, no distress. HEENT: Mucosa is pink and moist. Anicteric. Acyanotic. Neck: Supple. Chest: Air entry is bilaterally reduced. There are still prolonged expiratory phase of respiration with diffuse wheezing. Cardiovascular: Regular rate and rhythm. Abdomen: Soft, distended but nontender. Bowel sounds present. Extremities: No pedal edema. OVERSEAMER: Patient is awake, alert, and oriented. LABORATORY DATA: WBC is 13.06, hemoglobin is 12.1, platelet count of 288,000. Chemistry is also reviewed and completely normal except for glucose of 220. CURRENT MEDICATIONS: Have all been reviewed. ASSESSMENT: 1. Acute hypoxemic respiratory failure improving. 2. Chronic obstructive pulmonary disease and asthma overlap in acute exacerbation. We will continue with steroids, antibiotics and bronchodilation therapy. 3. History of vocal cord abnormality. The patient follows up with an ENT in [place]. 4. Acute kidney injury on presentation resolved. 5. Obesity with body mass index of 36.1, weight loss advised. 6. Newly diagnosed diabetes mellitus with A1c of 6.6. The patient continues to be hyperglycemic, most likely due to steroid use. We started her on insulin just for the hospital course. I think patient will be okay on oral hypoglycemic agents upon discharge. cc: Casey Coates MD
[2019-04-24] MEDS: CELEXA PO SCH (20:28)
[2019-04-24] MEDS: DESYREL PO SCH (20:29)
[2019-04-24] MEDS: NORVASC PO SCH (20:30)
[2019-04-24] MEDS: FISH OIL CONCENTRATE PO SCH (20:31)
[2019-04-24] MEDS: LIPITOR PO SCH (20:33)
[2019-04-24] MEDS ORDERED: NS 250 ML ONE (23:26)
[2019-04-25] MEDS: SOLU-MEDROL IV SCH ×3 (01:47→22:29)
[2019-04-25] MEDS: XOPENEX NEB INH SCH ×6 (03:08→22:59)
[2019-04-25] MEDS: HUMULIN R SUBQ SCH ×4 (06:21→22:31)
--- NOTE | 2019-04-25 06:40 | Diag Imaging Result Doc PS360 ---
CHEST-1 VIEW - 04/25/2019 INDICATION: SOB COMPARISON: 04/21/2019 FINDINGS: Lung volumes are moderately low. The lungs are clear. Heart size is normal. No pneumothorax or pleural effusion. IMPRESSION: Low lung volumes. Electronically signed by Dereje Laguna 04/25/2019 6:38 AM
[2019-04-25] MEDS: BREO ELLIPTA 200/25 MCG INH INH SCH ×2 (07:56→11:29)
[2019-04-25] MEDS: KLONOPIN PO SCH ×2 (08:40→22:29)
[2019-04-25] MEDS: ULTRAM PO SCH ×4 (08:41→22:32)
[2019-04-25] MEDS: APRESOLINE PO SCH ×2 (08:41→22:25)
[2019-04-25] MEDS: LOVENOX SUBQ SCH (08:42)
[2019-04-25] MEDS: ASPIRIN EC PO SCH (08:42)
[2019-04-25] MEDS ORDERED: LANTUS INSULIN SUBQ SCH (09:00)
[2019-04-25] MEDS: DOXYCYCLINE 100 MG in NS 250 ML IV SCH ×2 (10:58→22:38)
[2019-04-25] MEDS: LEVAQUIN 750 MG/D5W 750 MG/150 ML IVPB IV SCH (13:14)
[2019-04-25] MEDS ORDERED: PRILOSEC PO ONE (17:40)
[2019-04-25] MEDS: MIRALAX PO SCH (18:01)
--- NOTE | 2019-04-25 18:06 | PROGRESS NOTE ---
DATE: 04/25/2019 SUBJECTIVE: This morning Ms. Schwartz refers to be doing a whole lot better. She said her breathing has significantly improved. She still, however, has some baseline wheeze, some residual wheezing. OBJECTIVE: Vital signs: Blood pressure is 148/71, pulse of 88, respirations 15, temperature 99.0 degrees. General: Ms. Schwartz is a 63-year-old female she is in bed no distress. HEENT: Mucosa is pink and moist. Anicteric. Acyanotic. Neck: Supple. Chest: Air entry is bilaterally reduced. There is still some expiratory wheezing. Cardiovascular: Regular rate and rhythm. GI: Abdomen is soft. Extremities: No pedal edema. EQUIPMENT SERVICE ASSOCIATE: Patient is awake, alert, and oriented. LABORATORY DATA: Glucose is 257. ASSESSMENT: 1. Acute hypoxemic respiratory failure. Patient continues to be needing oxygen therapy. We are going to re-evaluate her oxygen at the time of discharge. 2. Chronic obstructive pulmonary disease with asthma overlap in acute exacerbation, improving. 3. History of vocal cord abnormality. Patient follows up with ENT in [place]. 4. Acute kidney injury on presentation, resolved. 5. Newly diagnosed diabetes mellitus with hyperglycemia. We will continue with insulin regimen while the patient is in the hospital. I think she would be okay on just last changes and metformin for long-term. 6. Obesity with BMI of 36.1. Patient has been counseled on weight management. PLAN: So in general, I think Ms. Schwartz is doing a whole lot better. Her breathing is getting better. She still remains with wheezing, so we will continue with the current management for another 24 hours. Hopefully get her home tomorrow. I have made some changes to her insulin demands because of elevated glucose levels. cc: Casey Coates MD
[2019-04-25] MEDS: DESYREL PO SCH (22:24)
[2019-04-25] MEDS: FISH OIL CONCENTRATE PO SCH (22:24)
[2019-04-25] MEDS: NORVASC PO SCH (22:26)
[2019-04-25] MEDS: CELEXA PO SCH (22:26)
[2019-04-25] MEDS: LIPITOR PO SCH (22:30)
[2019-04-25] MEDS: LANTUS INSULIN SUBQ SCH (22:31)
[2019-04-26] MEDS: XOPENEX NEB INH SCH ×4 (03:52→15:25)
[2019-04-26] MEDS: HUMULIN R SUBQ SCH ×3 (06:24→16:32)
[2019-04-26] MEDS ORDERED: PRILOSEC PO SCH (07:00)
[2019-04-26] MEDS: KLONOPIN PO SCH (08:36)
[2019-04-26] MEDS: ULTRAM PO SCH ×2 (08:36→14:38)
[2019-04-26] MEDS: MIRALAX PO SCH (09:15)
[2019-04-26] MEDS: LANTUS INSULIN SUBQ SCH (09:15)
[2019-04-26] MEDS: APRESOLINE PO SCH (09:16)
[2019-04-26] MEDS: SOLU-MEDROL IV SCH (09:16)
[2019-04-26] MEDS: ASPIRIN EC PO SCH (09:16)
[2019-04-26] MEDS: LOVENOX SUBQ SCH (09:16)
[2019-04-26] MEDS: LEVAQUIN 750 MG/D5W 750 MG/150 ML IVPB IV SCH (11:01)
[2019-04-26] MEDS: BREO ELLIPTA 200/25 MCG INH INH SCH (11:33)
[2019-04-26 11:40] VITALS: BP 149/77
[2019-04-26] MEDS: DOXYCYCLINE 100 MG in NS 250 ML IV SCH (12:36)
--- NOTE | 2019-04-27 19:26 | DISCHARGE SUMMARY ---
ADMISSION DATE: 04/21/2019 DISCHARGE DATE: 04/26/2019 DISPOSITION: Home. FOLLOW-UP: 1. Nabila Collins MD 2. Pratibha Lozada MD CONSULTATION DURING THIS ADMISSION: Pulmonary Medicine was consulted. Patient was seen by Dr. Collins. INVASIVE PROCEDURES DONE DURING THIS ADMISSION: None. IMAGING STUDIES OF SIGNIFICANCE: A chest x-ray initially was unremarkable. Repeat showed low lung volumes. ADMISSION DIAGNOSES: 1. Allergy reaction versus asthma attack. 2. Chronic obstructive pulmonary disease with mild exacerbation. 3. Hypertension. 4. Acute kidney injury. DIAGNOSIS AT THE TIME OF DISCHARGE: 1. Acute hypoxemic respiratory failure secondary to chronic obstructive pulmonary disease/asthma. 2. Chronic obstructive pulmonary disease with asthma overlap syndrome in acute exacerbation. 3. History of vocal cord abnormality. 4. Acute kidney injury on presentation resolved. 5. Newly diagnosed diabetes mellitus. 6. Obesity with BMI of 46.1. 7. Constipation. DISCHARGE MEDICATIONS: 1. Klonopin 0.5 p.o. q.a.m. 2. Atorvastatin 10 mg p.o. at bedtime. 3. Hydralazine 50 mg b.i.d. 4. Celexa 40 mg p.o. at bedtime. 5. Amlodipine 10 mg p.o. at bedtime. 6. Klonopin 1 mg p.o. at bedtime. 7. Aspirin 81 mg p.o. daily. 8. Tramadol 100 mg p.o. at bedtime. 9. Losartan 100 mg p.o. at bedtime. 10. Januvia 50 mg p.o. daily. 11. Levaquin 500 mg p.o. daily. 12. Omeprazole 20 mg p.o. daily. 13. Prednisone 20 mg p.o. daily. 14. Doxycycline 100 mg b.i.d. 15. Metformin 500 b.i.d. 16. Milk of magnesia. PRESENTING COMPLAINT: Possible allergy reaction, shortness of breath. HISTORY OF PRESENTING COMPLAINT: Ms. Schwartz is a 63-year-old female who has a history of COPD, asthma, congestive heart failure, came to the emergency department because of shortness of breath and some allergy reaction with almost the throat closing up. Upon presentation, she was evaluated was found to be in a lot of wheezing and respiratory distress. She was nebulized and started on oxygen therapy and admitted to the medical floor for further medical care. HOSPITAL COURSE: Ms. Schwartz was admitted to the medical floor and was started on IV antibiotics, nebulization and steroid therapy. She was also initially treated for possible allergy reaction. Pulmonary Medicine was consulted. Patient was seen by Dr. Collins followed up by Dr. Tejeda. Some changes were done to her medications. She seems to progressively have gotten better over the course of the hospital stay. Today she refers to feel a lot better. Wheezing and shortness of breath has significantly improved. The patient has been evaluated for home oxygen and she does qualify. During the hospital course, Ms. Schwartz was also found to have an A1c of 6.6 with persistent hyperglycemia any time this was checked. She was diagnosed with diabetes mellitus during the hospital course she was placed on the insulin but with the low A1c we think she will be okay with oral hypoglycemic agent. She has been advised to follow up with her primary care provider on that. This morning, Ms. Gutierrez's vitals are stable. Blood pressure is 149/77, pulse of 82, respirations 18, temperature is 97.7 degrees. We think she is fairly stable for discharge. She is going to follow up with Pulmonary Medicine. Time spent for discharge is 35 minutes. cc: MD Pratibha Slade MD Rony Najjar MTDD
== END 2019-04-26 18:17 | disposition home health service (06) | DRG 190 ==
LOC: ED 23:45 → 2N 04-21 06:41 → SUATTDRO 04-21 06:41 → 3N 04-21 15:48 → 2N 04-21 15:53 → 3N 04-24 05:14
PROVIDERS: ATTEND Internal Medicine